=== PATIENT | female | born 1970 | race American Indian/Alaskan Native ===

== ENCOUNTER 2017-03-09 14:00 | Inpatient (IN) | payer OTHER ==
[2017-03-09 15:30] LABS: Basophils % (Auto) 0.4 % (0.0-1.8); Eosinophils % (Auto) 0.5 % (0.0-4.3); Hematocrit 31.6 % (30.3-42.9); Hemoglobin 10.4 gm/dl (10.1-14.3); Mean Corpuscular HGB Conc 33 % (30-34); Mean Corpuscular Hemoglobin 34 pg (28-32); Mean Corpuscular Volume 103 fl (79-97); Platelet Count 304 K/mm3 (140-440); Red Blood Count 3.09 M/mm3 (3.65-5.03); Red Cell Distribution Width 16.5 % (13.2-15.2); White Blood Count 6.3 K/mm3 (4.5-11.0)
[2017-03-09 16:11] LABS: Anion Gap 19 mmol/L; BUN/Creatinine Ratio 15.71; Blood Urea Nitrogen 11 mg/dL (7-17); Calcium 9.8 mg/dL (8.4-10.2); Carbon Dioxide 28 mmol/L (22-30); Chloride 102.7 mmol/L (98-107); Glucose 95 mg/dL (65-100); Potassium 4.2 mmol/L (3.6-5.0); Sodium 145 mmol/L (137-145)
--- NOTE | 2017-03-09 16:36 | ED Elopement Review ---
ED Pt Elopement review - Results review Lab results: Laboratory Tests 03/09/17 03/09/17 15:10 15:10 WBC 6.3 RBC 3.09 L Hgb 10.4 Hct 31.6 MCV 103 H MCH 34 H MCHC 33 RDW 16.5 H Plt Count 304 Lymph % (Auto) 35.0 [place] % (Auto) 12.1 H Eos % (Auto) 0.5 Baso % (Auto) 0.4 Lymph # 2.2 [place] # 0.8 Eos # 0.0 Baso # 0.0 Seg Neutrophils % 52.0 Seg Neutrophils # 3.3 Sodium 145 Potassium 4.2 Chloride 102.7 Carbon Dioxide 28 Anion Gap 19 BUN 11 Creatinine 0.7 Estimated GFR > 60 BUN/Creatinine Ratio 15.71 Glucose 95 Calcium 9.8 - Call Back decision Pt Call Back Decision: Call pt to return to ED [place] (when I went to see this patient, she had eloped from the emergency department. Her triage records discussed detox from substance abuse and possible suicidal ideations. The police will be contacted)
[2017-03-09] MEDS ORDERED: ATIVAN IV PRN ×2 (16:50)
--- NOTE | 2017-03-09 16:53 | Emergency Department Report ---
HPI - General Chief Complaint: Psych Time Seen by Provider: 03/09/17 16:09 - HPI HPI: This is a 46-year-old Afro-Stateless female presents to the emergency department , through triage, with complaint of alcoholism and suicidal ideations. The patient has history of hepatitis C, for which she has had for the past 30 years , and this is causing her to feel depressed. She says that "I am going to anyways", because of the hepatitis and her alcoholism, so she feels that suicide is not an inappropriate route to go. She does not have any specific plan at this time. She does have a history of seizures for which she is supposed to take Dilantin but says that she cannot afford the medication. She also does not have a primary care doctor she says she cannot afford it. Patient currently complains of some detox symptoms and feels very jittery and shaky. ED Past Medical Hx - Past Medical History Previous Medical History?: Yes Hx Seizures: Yes Additional medical history: Hep C - Surgical History Past Surgical History?: No - Social History Smoking Status: Never Smoker Substance Use Type: Alcohol ED Review of Systems ROS: Stated complaint: EVALUATION Other details as noted in HPI Comment: All other systems reviewed and negative Constitutional: denies: chills, fever Eyes: denies: eye pain, eye discharge, vision change ENT: denies: ear pain, throat pain Respiratory: denies: cough, shortness of breath, wheezing Cardiovascular: denies: chest pain, palpitations Gastrointestinal: denies: abdominal pain, nausea, diarrhea Genitourinary: denies: urgency, dysuria, discharge Musculoskeletal: denies: back pain, joint swelling, arthralgia Skin: denies: rash, lesions Neurological: denies: headache, confusion Psychiatric: depression, suicidal thoughts. denies: auditory hallucinations, visual hallucinations, homicidal thoughts Physical Exam - Physical Exam Vital Signs: Vital Signs 03/09/17 15:27 Temperature 98.1 F Pulse Rate 90 Respiratory 16 Rate Blood Pressure 148/87 [Left] O2 Sat by Pulse 97 Oximetry Physical Exam: GENERAL: The patient is well-developed well-nourished. HEENT: Normocephalic. Atraumatic. Extraocular motions are intact. Patient has moist mucous membranes. Pupils equal reactive to light bilaterally. Fatigable horizontal nystagmus. NECK: Supple. Trach is midline. CHEST/LUNGS: Clear to auscultation. There is no respiratory distress noted. HEART/CARDIOVASCULAR: Regular. There is no tachycardia. There is no gallop rub or murmur. ABDOMEN: Abdomen is soft, nontender. Patient has normal bowel sounds. There is no abdominal distention. SKIN: Skin is warm and dry. NEURO: The patient is awake, alert, and oriented. The patient is cooperative. The patient has no focal neurologic deficits. The patient has normal speech and gait. Patient has a slight upper extremity tremor. MUSCULOSKELETAL: There is no tenderness or deformity. There is no limitation range of motion. There is no evidence of acute injury. Muscle strength 5 out of 5 upper and lower extremities bilaterally. PSYCH: Flat affect. ED Course Vital Signs 03/09/17 15:27 Temperature 98.1 F Pulse Rate 90 Respiratory 16 Rate Blood Pressure 148/87 [Left] O2 Sat by Pulse 97 Oximetry ED Medical Decision Making - Lab Data Result diagrams: 03/09/17 15:10 03/09/17 15:10 - Medical Decision Making 46-year-old female presents with suicidal ideations and alcoholism. She last drink today but blood alcohol levels negative. She has a history of delirium tremens and seizures. While the patient does not appear to be currently in DTs she does have some mild tremors and appears to be starting withdrawal. Started on CIWA protocol. Urine drug screen positive for benzodiazepine's, otherwise labs are unremarkable. Vital signs stable throughout her ED course. However the patient will be admitted medically first to make sure that she does not develop any significant withdrawal syndrome and therefore can be cleared for psychiatric placement. She has been made a 1013 secondary to her suicidal ideations. - Differential Diagnosis alcoholism, bipolar disorder, depression, delirium tremens Critical Care Time: No Critical care attestation.: If time is entered above; I have spent that time in minutes in the direct care of this critically ill patient, excluding procedure time. ED Disposition Clinical Impression: Alcoholism, Suicidal ideation Alcohol withdrawal Qualifiers: Complication of substance-induced condition: with unspecified complication Qualified Code(s): F10.239 - Alcohol dependence with withdrawal, unspecified Disposition: OP ADMITTED IP TO THIS HOSP Is pt being admited?: Yes Condition: Stable Time of Disposition: 19:49
[2017-03-09] MEDS ORDERED: VITAMIN B-1 100 MG, FOLVITE 1 MG, INFUVITE 10 ML in NACL 0.9% 1000 ML 1,000 ML IV ONE (17:38)
[2017-03-09 19:27] LABS: Urine Drugs of Abuse Note Disclamer
[2017-03-09 19:43] LABS: Bilirubin,Urine NEG (Negative); Blood,Urine NEG (Negative); Ketones,Urine TR mg/dL (Negative); Leukocyte Esterase,Urine NEG (Negative); Nitrite,Urine NEG (Negative); Protein,Urine <15 mg/dL mg/dL (Negative); Urobilinogen,Urine < 2.0 mg/dL (<2.0)
--- NOTE | 2017-03-09 21:46 | Event Note ---
Date: 03/09/17 See H/p in reports ETOH dependence Suicidal ideation Seizure disorder Gastritis DVT prophylaxis
[2017-03-09] MEDS: HEPARIN SUB-Q SCH (22:31)
[2017-03-09] MEDS: 1: FOLVITE 1 MG, INFUVITE 10 ML, VITAMIN B-1 100 MG in NACL 0.9% 1000 ML 988.8 ML 2: NA IV SCH ×3 (23:10→23:13)
[2017-03-10] MEDS: HEPARIN SUB-Q SCH ×3 (05:24→22:11)
[2017-03-10] MEDS: 1: FOLVITE 1 MG, INFUVITE 10 ML, VITAMIN B-1 100 MG in NACL 0.9% 1000 ML 988.8 ML 2: NA IV SCH (05:56)
--- NOTE | 2017-03-10 06:47 | Admit Criteria Form ---
Admission Criteria Documentation: ALCOHOL AND PSYCHOACTIVE SUBSTANCE WITHDRAWAL Clinical Indications for Inpatient Care (Place ' X' for any and all applicable criteria): Ongoing inpatient care may be indicated for substance withdrawal[B][C] with ANY ONE of the following(1)(2)(3)(4)(21): [ ]I. Delirium due to alcohol or sedative[D] withdrawal is present. [ ]II. Marked signs of withdrawal are present as indicated by ANY ONE of the following(15)(22)(23) [ ]a) Heart rate greater than 120 beats per minute is present. [ ]b) Severe vomiting is present (eg, precludes maintenance of oral hydration). [ ]c) Grossly visible tremor is present. [ ]d) Profuse perspiration is present. [ ]e) Temperature greater than 101 degrees F (38.3 degrees C) is present. [ ]f) Other signs of severe withdrawal are present (eg, Altered mental status ) [ ]g) Severe withdrawal identified by standardized assessment score[A] [ ]III. Signs of withdrawal that require continued inpatient treatment as indicated by ANY ONE of the following(15)(22)(23): [ ]a) Inadequate response to pharmacotherapy (eg, benzodiazepines) [ ]b) Outpatient or lower level of care is not feasible or appropriate (eg, unavailable or inappropriate to patient condition or treatment history). [X ]IV. Withdrawal signs with high-risk indicator are present as manifested by ALL of the following[A](15)(22)(23) [ X]a) Signs of withdrawal are present as indicated by ANY ONE of the following: [ ]i. Tachycardia is present. [ ]ii. Nausea or vomiting is present. [X ]iii. Tremor is present. [ ]iv. Increased perspiration is present. [ ]v. Other signs of withdrawal are present. [ ]vi. Withdrawal identified by standardized assessment score [A] [X ]b) Elevated risk due to historical or comorbid factor is present as indicated by ANY ONE of the following: [X ]i. History of delirium due to withdrawal is present. [ ]ii. History of seizures due to withdrawal is present.[E] [ ]iii. Intrinsic seizure disorder (epilepsy) is present. [ ]iv. Patient is . [ ]v. Other significant medical history (eg, severe cardiac disease) is present, which is assessed to be at risk for destabilization due to withdrawal. [ ]V. Serious electrolyte abnormalities (eg, hyponatremia, hypokalemia, hypophosphatemia) requiring correction performable only in inpatient setting(6)(25) [ ]. Severe hypoglycemia requiring glucose infusions performable only in inpatient setting(6) [ ]VII. Drug toxicity or instability, such as Altered mental status, respiratory depression, or arrhythmias, that requires inpatient care [X ]VIII. Danger judged unmanageable at lower level of care because of ANY ONE of the following [ X]a) Danger to self [ ]b) Danger to others [ ]c) Grave disability (eg, inability to perform self-care necessary at lower level of care) The original [facility] Care Guidelines content created by [facility] has been revised. The portions of the content which have been revised are identified through the use of italic text or in bold. [facility] Guidelines has neither reviewed nor approved the modified material. All other unmodified content is copyright [facility] Care Guidelines. Please see references footnoted in the original [facility] edition 2016 Admission Criteria Met: Yes
[2017-03-10] MEDS ORDERED: LOPRESSOR IV ONE (09:20)
[2017-03-10] MEDS ORDERED: APRESOLINE IV PRN (09:20)
[2017-03-10] MEDS ORDERED: APRESOLINE IV ONE (09:31)
[2017-03-10] MEDS: KEPPRA PO SCH ×2 (09:43→22:11)
--- NOTE | 2017-03-10 09:49 | Discharge Summary ---
Providers - Providers Date of Admission: 03/09/17 19:50 Date of discharge: 03/10/17 Attending physician: NIKO LEWIS MD 03/09/17 21:50 Consult to Physician [CONS] Routine Consulting Provider: LISA HAMMOND Reason For Exam: ETOH dependence Place consult to:: MELISSA Notified:: MELISSA Phone number called:: [phone] Was contact made?: Yes If yes, spoke with:: MELISSA Time called:: 07:08 03/10/17 09:03 Consult to Mental Health [CONS] Routine Reason For Exam: Etoh dependence/Suicidal ideation Place consult to:: yes Notified:: MELISSA Phone number called:: [phone] Was contact made?: Yes If yes, spoke with:: MELISSA Time called:: 07:08 Primary care physician: HOPPER FEEDER Hospitalization Reason for admission: Suicidal Ideation, ETOH depenece withdrawal seizure. Condition: Stable Hospital course: Patient is a 46 year old female with hx of seizure disorder, last epsiode as a child per the patient, history of alcohol dependence and hepatitis C who presented to the hospital following withdrawal seizure. The patient also reported suicidal ideation. He was placed on a 1013. Patient during hospitalization reported chest pain which was reproducible. No associated exertional components and shortness of breath. She is clinical before discharge and also recommended outpatient follow-up with cardiology just based on her age and alcohol abuse. Also an echocardiogram which can be done outpatient. Also advised that no exertional activity until she sees cardiology. Verbalized understanding. No indication for AED at this time as patient did have a withdrawal seizure. Extensive counseling was provided on alcohol cessation and following up at rehabilitation facility. Patient also has history of hypertension for which I started her on a blood pressure medication with hydrochlorothiazide and extensive counseling will also provide informed medication compliance Discharge diagnosis * Alcohol withdrawal seizure * Alcohol dependence * Suicidal ideation * Hepatitis C * Hypertension * Cachexia with mild protein calorie malnutrition Disposition: DC/TX PSY HOSP/PSY UNIT Time spent for discharge: 35 mins Core Measure Documentation - Palliative Care Palliative Care/ Comfort Measures: Not Applicable - Core Measures Any of the following diagnoses?: none - VTE Discharge Requirements Deep Vein Thrombosis/Pulmonary Embolism Present on Admission: No Exam - Physical Exam Narrative exam: VITAL SIGNS: Reviewed. GENERAL: The patient appeared well nourished and normally developed. Vital signs as documented. HEAD: No signs of head trauma. EYES: Pupils are equal. Extraocular motions intact. EARS: Hearing grossly intact. MOUTH: Oropharynx is normal. NECK: No adenopathy, no JVD. CHEST: Chest with clear breath sounds bilaterally. No wheezes, rales, or rhonchi. CARDIAC: Regular rate and rhythm. S1 and S2, without murmurs, gallops, or rubs. VASCULAR: No Edema. Peripheral pulses normal and equal in all extremities. ABDOMEN: Soft, without detectable tenderness. No sign of distention. No rebound or guarding, and no masses palpated. Bowel Sounds normal. MUSCULOSKELETAL: Chest wall tenderness on palpation, otherwise good range of motion of all major joints. Extremities without clubbing, cyanosis or edema. NEUROLOGIC EXAM: Alert and oriented x 3. No focal sensory or strength deficits. Speech normal. Follows commands. PSYCHIATRIC: Mood normal. SKIN: No rash or lesions. - Constitutional Vitals: Temp Pulse Resp BP Pulse Ox 98.2 F 80 20 178/118 96 03/10/17 08:19 03/10/17 09:44 03/10/17 08:19 03/10/17 09:44 03/10/17 08:19 Plan Activity: advance as tolerated, fall precautions Diet: low fat Special Instructions: record daily BP diary Follow up with: LUIS A HAMMOND MD [Staff Physician] - 7 Days PRIMARY CAREMD [Primary Care Provider] - 3-5 Days JACOB CORONADO MD [Staff Physician] - 7 Days Prescriptions: Phenytoin [Dilantin] 300 mg PO QHS #30 capsule.er amLODIPine [Norvasc] 10 mg PO DAILY #30 tab chlordiazePOXIDE [Librium] 5 mg PO Q12H PRN #14 capsule PRN Reason: Anxiety Folic Acid 0.4 mg PO QDAY #30 tablet Multivitamin Tab [Multiple Vitamin TAB (Theragran)] 1 each PO QDAY #30 tablet Thiamine [Vitamin B-1] 100 mg PO QDAY #30 tablet
--- NOTE | 2017-03-10 10:10 | History and Physical Report ---
CHIEF COMPLAINT: 1. ETOH dependence. 2. Suicidal ideation. HISTORY OF PRESENT ILLNESS: A 46-year-old -Finnish female who presents to the Emergency Department for suicidal ideation and ETOH dependence. The patient states \\"I am going to anyway\\" because of hepatitis and alcoholism. Feel suicidal but does not have any specific plan. The patient also has a history of seizures, but not taking seizure tab Dilantin which is prescribed as anti-seizure medication. ALLERGIES: The patient is basically noncompliant, not taking her medications and ETOH dependent with seizures also suicidal ideations. PAST MEDICAL HISTORY: Hepatitis C, seizures, and ETOH dependence. SOCIAL HISTORY: ETOH dependence. PAST SURGICAL HISTORY: None. FAMILY HISTORY: No hypertension, no diabetes. REVIEW OF SYSTEMS: CONSTITUTIONAL: No weight loss, no weight gain. No fever, no chills. HEENT: No sore throat, no postnasal drip. CARDIOVASCULAR AND RESPIRATORY SYSTEM: No shortness of breath, no chest pain, no palpitations. GASTROINTESTINAL: Some epigastric discomfort present. GENITOURINARY: No dysuria, no flank pain. MUSCULOSKELETAL: No joint pains. No muscle pains. CENTRAL NERVOUS SYSTEM: No syncope. No recent seizures. SKIN: No rashes. PSYCHIATRIC: Suicidal ideation present. ____ concrete plan. A 14-point review of systems is otherwise negative. PHYSICAL EXAMINATION: GENERAL: Middle-aged female who looks older than her age. VITAL SIGNS: Temperature 98.1, pulse is 90, respiratory rate is 16, blood pressure is 148/87, and sats are 97%. HEENT: Unremarkable. Pupils equal and reactive. NECK: Supple, no lymphadenopathy, no thyromegaly. LUNGS: Clear to auscultation and percussion. Good air entry. CARDIOVASCULAR: S1, S2 heard. No gallop, no murmur, no rub. Apical impulse in left fifth intercostal space and midclavicular line. ABDOMEN: Soft and benign. No hepatosplenomegaly. No guarding, no rigidity. Hernial orifices are normal. EXTREMITIES: Good pedal pulses. No pedal edema. CENTRAL NERVOUS SYSTEM: Alert and oriented x 4, nonfocal exam. SKIN: Normal. LABORATORY DATA: Labs are significant for white count of 6300. H and H is 10.4 and 31.6, platelet count is 304,000. Electrolytes are normal. Potassium is 4.2. Sodium is 145, BUN and creatinine 11 and 0.7. Urine is negative. Drug screen is positive for benzos. Alcohol level is less than 0.01. ASSESSMENT AND PLAN: 1. ETOH dependence. The patient started on CIWA protocol. The patient has history of delirium tremens. The patient was started on banana bag and Ativan as part of the CIWA protocol. 2. Suicidal ideation. Mental health consult requested. 3. Seizure disorder by history. The patient on Dilantin. She was started on Keppra 750 p.o. q.12h. We will discharge the patient on Keppra more safer drug than Dilantin. 4. Hepatitis C. CMP ordered. The patient can follow up with primary care for hepatitis C. The primary care can refer to GI for treatment of hepatitis C. 5. DVT prophylaxis, Lovenox 40 mg subcutaneous daily. JOB# [id number] VSM/NTS
[2017-03-10] MEDS ORDERED: NACL 0.9% 1000 ML 1,000 ML IV SCH (11:00)
[2017-03-10] MEDS ORDERED: FLUARIX QUAD 2016-2017(36 MOS+) IM ONE (12:00)
[2017-03-10] MEDS ORDERED: PNEUMOVAX 23 IM ONE (12:00)
[2017-03-10 13:38] LABS: Basophils % (Auto) 0.6 % (0.0-1.8); Eosinophils % (Auto) 0.7 % (0.0-4.3); Hemoglobin 10.5 gm/dl (10.1-14.3); Mean Corpuscular HGB Conc 34 % (30-34); Mean Corpuscular Hemoglobin 34 pg (28-32); Mean Corpuscular Volume 101 fl (79-97); Platelet Count 285 K/mm3 (140-440); Red Blood Count 3.06 M/mm3 (3.65-5.03); Red Cell Distribution Width 16.5 % (13.2-15.2)
[2017-03-10 13:55] LABS: Alanine Aminotransferase 50 units/L (7-56); Albumin 3.6 g/dL (3.9-5); Alkaline Phosphatase 83 units/L (35-129); Anion Gap 18 mmol/L; BUN/Creatinine Ratio 8.33; Blood Urea Nitrogen 5 mg/dL (7-17); Calcium 8.8 mg/dL (8.4-10.2); Carbon Dioxide 26 mmol/L (22-30); Chloride 103.5 mmol/L (98-107); Glucose 101 mg/dL (65-100); Potassium 3.5 mmol/L (3.6-5.0); Sodium 144 mmol/L (137-145); Total Protein 7.1 g/dL (6.3-8.2)
--- NOTE | 2017-03-10 15:01 | Consultation ---
History of Present Illness - Reason for Consult Consult date: 03/10/17 Reason for consult: Mental Health Evaluation Requesting physician: PETRA MIRELES - Chief Complaint Chief complaint: "I want help" - History of Present Psychiatric Illness This is a 46-year-old Afro-Portuguese female presents to the emergency department , through triage, with complaint of alcoholism and suicidal ideations. Today patient is calm and cooperative during assessment. She stated that she would like help for her alcohol addiction. She stated that didn't elope on admission. She stated she went to another restroom in the hospital and left the ER area. She apologized to me for causing a "problem." She stated that she was suicidal on admission, because she felt she was "drinking" her life away. She is aware that she has hepatitis and stated, "Having hepatitis and drinking does not mix well." She is adamant about getting help and would like to attend a long-term outpatient rehab services for alcohol abuse. She stated that she been drinking over 20 years and drink a pint of "liquor" a day. Her last drink was 03/08/2017. She denies SI/HI, AVH's, sleep disturbance, or a poor appetite. She has not needed Ativan per CIWA protocol. She denies recreational drug. Positive for benzos. Medications and Allergies Allergies Allergy/AdvReac Type Severity Reaction Status Date / Time Penicillins Allergy Unknown Verified 03/09/17 14:38 Home Medications Medication Instructions Recorded Confirmed Last Taken Type Folic Acid 0.4 mg PO QDAY #30 tablet 03/10/17 Unknown Rx Hydrochlorothiazide [HCTZ] 25 mg PO QDAY #30 tablet 03/10/17 Unknown Rx Multivitamin Tab [Multiple Vitamin 1 each PO QDAY #30 tablet 03/10/17 Unknown Rx TAB (Theragran)] Thiamine [Vitamin B-1] 100 mg PO QDAY #30 tablet 03/10/17 Unknown Rx Active Meds: Active Medications Folic Acid (Folvite) 1 mg PO DAILY [facility] Heparin Sodium (Porcine) (Heparin) 5,000 unit SUB-Q Q8HR [facility]S Last Admin: 03/10/17 05:24 Dose: 5,000 unit Hydralazine HCl (Apresoline) 10 mg IV Q4HR PRN PRN Reason: Hypertension Sodium Chloride (Nacl 0.9% 1000 Ml) 1,000 mls @ 125 mls/hr IV DIRECT [facility] Levetiracetam (Keppra) 750 mg PO BID [facility] Last Admin: 03/10/17 09:43 Dose: 750 mg Lorazepam (Ativan) 2 mg IV Q1HR PRN PRN Reason: CIWA-Ar 8-15 Lorazepam (Ativan) 4 mg IV Q1HR PRN PRN Reason: CIWA-Ar 16-25 Lorazepam (Ativan) 4 mg IV Q15MIN PRN PRN Reason: CIWA-Ar >25 Multivitamins (Theragran Tab) 1 each PO DAILY [facility] Thiamine HCl (Vitamin B-1) 100 mg PO QDAY [facility] Past psychiatric history - Past Medical History Past Medical History: hepatitis Past Surgical History: No surgical history - past Psychiatric treatment and history psychiatric treatment history: [facility] for substance abuse. Denies fam psy hx. - Social History Social history: lives with family, alcohol abuse Mental Status Exam - Vital signs Last Vital Signs Temp 98.2 F 03/10/17 08:19 Pulse 107 H 03/10/17 11:02 Resp 20 03/10/17 08:19 BP 125/80 03/10/17 11:02 Pulse Ox 96 03/10/17 08:19 Results Result Diagrams: 03/10/17 13:07 03/10/17 13:07 Abnormal lab results 03/10/17 03/10/17 Range/Units 13:07 13:07 RBC 3.06 L (3.65-5.03) M/mm3 MCV 101 H (79-97) fl MCH 34 H (28-32) pg RDW 16.5 H (13.2-15.2) % [place] % (Auto) 11.5 H (0.0-7.3) % Potassium 3.5 L (3.6-5.0) mmol/L BUN 5 L (7-17) mg/dL Creatinine 0.6 L (0.7-1.2) mg/dL Glucose 101 H (65-100) mg/dL AST 71 H (5-40) units/L Albumin 3.6 L (3.9-5) g/dL All other labs normal. Assessment and Plan Assessment and plan: Impression: Alcohol Use DO. This is a 46-year-old Afro-Portuguese female presents to the emergency department, through triage, with complaint of alcoholism and suicidal ideations. Today patient is calm and cooperative during assessment. She stated that she would like help for her alcohol addiction. She stated that didn't elope of admission. She stated she went to another restroom in the hospital and left the ER area. No acute withdrawals observed on assessment. DD: Depressive DO Recommendation/Plan: Continue 1013 and reevaluate in the morning. Will provide outpatient rehab services information to patient if discharged. Discussed generalized coping skills with patient, also the important to abstain from alcohol consumption.
[2017-03-10] MEDS ORDERED: MOTRIN PO PRN (15:29)
[2017-03-10] MEDS: VITAMIN B-1 PO SCH (15:38)
[2017-03-10] MEDS: FOLVITE PO SCH (15:38)
[2017-03-10] MEDS: THERAGRAN Tab PO SCH (15:39)
--- NOTE | 2017-03-10 16:47 | Progress Note ---
Assessment and Plan Assessment and plan: Patient is a 46-year-old female with past medical history of seizure as a child and since then, Alcohol abuse admitted with suicidal ideation and EtOH withdrawal seizure. * Atypical chest pain likely secondary to costochondritis * Suicidal ideation * Alcohol withdrawal seizure * Alcohol dependence * Hepatitis C Plan: * Patient is medically stable for discharge to inpatient psych. * Chest pain totally reproducible troponins ordered likely costochondritis * No indication for a ED at this time considering withdrawal nature of the seizure * I discussed with the patient over the need of total abstain from alcohol, she verbalizes understanding * DVT/GI prophy * Plan discussed with nursing staff and patient. History Interval history: Patient seen and examined this morning in no acute distress This morning complaining of reproducible chest pain but otherwise no, nausea, vomiting, diarrhea No fever noted blood pressure controlled No adverse events reported to me by nursing staff Hospitalist Physical - Physical exam Narrative exam: VITAL SIGNS: Reviewed. GENERAL: The patient appeared well nourished and normally developed. Vital signs as documented. HEAD: No signs of head trauma. EYES: Pupils are equal. Extraocular motions intact. EARS: Hearing grossly intact. MOUTH: Oropharynx is normal. NECK: No adenopathy, no JVD. CHEST: Chest with clear breath sounds bilaterally. No wheezes, rales, or rhonchi. CARDIAC: Regular rate and rhythm. S1 and S2, without murmurs, gallops, or rubs. VASCULAR: No Edema. Peripheral pulses normal and equal in all extremities. ABDOMEN: Soft, without detectable tenderness. No sign of distention. No rebound or guarding, and no masses palpated. Bowel Sounds normal. MUSCULOSKELETAL: Chest wall tenderness on palpation, otherwise good range of motion of all major joints. Extremities without clubbing, cyanosis or edema. NEUROLOGIC EXAM: Alert and oriented x 3. No focal sensory or strength deficits. Speech normal. Follows commands. PSYCHIATRIC: Mood normal. SKIN: No rash or lesions. - Constitutional Vitals: Temp Pulse Resp BP Pulse Ox 98.2 F 107 H 20 125/80 96 03/10/17 08:19 03/10/17 11:02 03/10/17 08:19 03/10/17 11:02 03/10/17 08:19 Results - Labs CBC & Chem 7: 03/10/17 13:07 03/10/17 13:07 Labs: Laboratory Last Values WBC 5.0 K/mm3 (4.5-11.0) 03/10/17 13:07 RBC 3.06 M/mm3 (3.65-5.03) L 03/10/17 13:07 Hgb 10.5 gm/dl (10.1-14.3) 03/10/17 13:07 Hct 31.0 % (30.3-42.9) 03/10/17 13:07 MCV 101 fl (79-97) H 03/10/17 13:07 MCH 34 pg (28-32) H 03/10/17 13:07 MCHC 34 % (30-34) 03/10/17 13:07 RDW 16.5 % (13.2-15.2) H 03/10/17 13:07 Plt Count 285 K/mm3 (140-440) 03/10/17 13:07 Lymph % (Auto) 32.8 % (13.4-35.0) 03/10/17 13:07 [place] % (Auto) 11.5 % (0.0-7.3) H 03/10/17 13:07 Eos % (Auto) 0.7 % (0.0-4.3) 03/10/17 13:07 Baso % (Auto) 0.6 % (0.0-1.8) 03/10/17 13:07 Lymph # 1.7 K/mm3 (1.2-5.4) 03/10/17 13:07 [place] # 0.6 K/mm3 (0.0-0.8) 03/10/17 13:07 Eos # 0.0 K/mm3 (0.0-0.4) 03/10/17 13:07 Baso # 0.0 K/mm3 (0.0-0.1) 03/10/17 13:07 Seg Neutrophils % 54.4 % (40.0-70.0) 03/10/17 13:07 Seg Neutrophils # 2.7 K/mm3 (1.8-7.7) 03/10/17 13:07 Sodium 144 mmol/L (137-145) 03/10/17 13:07 Potassium 3.5 mmol/L (3.6-5.0) L 03/10/17 13:07 Chloride 103.5 mmol/L (98-107) 03/10/17 13:07 Carbon Dioxide 26 mmol/L (22-30) 03/10/17 13:07 Anion Gap 18 mmol/L 03/10/17 13:07 BUN 5 mg/dL (7-17) L 03/10/17 13:07 Creatinine 0.6 mg/dL (0.7-1.2) L 03/10/17 13:07 Estimated GFR > 60 ml/min 03/10/17 13:07 BUN/Creatinine Ratio 8.33 % 03/10/17 13:07 Glucose 101 mg/dL (65-100) H 03/10/17 13:07 Calcium 8.8 mg/dL (8.4-10.2) 03/10/17 13:07 Total Bilirubin 0.20 mg/dL (0.1-1.2) 03/10/17 13:07 AST 71 units/L (5-40) H 03/10/17 13:07 ALT 50 units/L (7-56) 03/10/17 13:07 Alkaline Phosphatase 83 units/L (35-129) 03/10/17 13:07 Total Protein 7.1 g/dL (6.3-8.2) 03/10/17 13:07 Albumin 3.6 g/dL (3.9-5) L 03/10/17 13:07 Albumin/Globulin Ratio 1.0 % 03/10/17 13:07 Urine Color Yellow (Yellow) 03/09/17 19:25 Urine Turbidity Clear (Clear) 03/09/17 19:25 Urine pH 6.0 (5.0-7.0) 03/09/17 19:25 Ur Specific [place] 1.009 (1.003-1.030) 03/09/17 19:25 Urine Protein <15 mg/dl mg/dL (Negative) 03/09/17 19:25 Urine Glucose (UA) Neg mg/dL (Negative) 03/09/17 19:25 Urine Ketones Tr mg/dL (Negative) 03/09/17 19:25 Urine Blood Neg (Negative) 03/09/17 19:25 Urine Nitrite Neg (Negative) 03/09/17 19:25 Ur Reducing Substances Not Reportable 03/09/17 19:25 Urine Bilirubin Neg (Negative) 03/09/17 19:25 Urine Ictotest Not Reportable 03/09/17 19:25 Urine Urobilinogen < 2.0 mg/dL (<2.0) 03/09/17 19:25 Ur Leukocyte Esterase Neg (Negative) 03/09/17 19:25 Urine WBC (Auto) 1.0 /HPF (0.0-6.0) 03/09/17 19:25 Urine RBC (Auto) 1.0 /HPF (0.0-6.0) 03/09/17 19:25 U Epithel Cells (Auto) 1.0 /HPF (0-13.0) 03/09/17 19:25 Urine HCG, Qual Negative (Negative) 03/09/17 19:25 Urine Opiates Screen Presumptive negative 03/09/17 19:25 Urine Methadone Screen Presumptive negative 03/09/17 19:25 Ur Barbiturates Screen Presumptive negative 03/09/17 19:25 Ur Phencyclidine Scrn Presumptive negative 03/09/17 19:25 Ur Amphetamines Screen Presumptive negative 03/09/17 19:25 U Benzodiazepines Scrn Presumptive positive 03/09/17 19:25 Urine Cocaine Screen Presumptive negative 03/09/17 19:25 U Marijuana (THC) Screen Presumptive negative 03/09/17 19:25 Drugs of Abuse Note Disclamer 03/09/17 19:25 Plasma/Serum Alcohol < 0.01 gm% (0-0.07) 03/09/17 15:10 - Imaging and Cardiology EKG: report reviewed
--- NOTE | 2017-03-10 18:00 | Event Note ---
Date: 03/10/17 ROS (-) depression MSE: Appearance: calm, cooperative Behavior: good eye contact, disorganized Speech: regular rate and tone Mood: "okay" Affect: euthymic Thought Process: linear Thought Content: denies SI/HI's and VH's Motor Activity: ambulatory Cognition: a/ox 3 Insight: fair Judgment: fair
[2017-03-11] MEDS: HEPARIN SUB-Q SCH ×3 (06:00→22:40)
[2017-03-11] MEDS: FOLVITE PO SCH (11:53)
[2017-03-11] MEDS: KEPPRA PO SCH ×2 (11:53→22:39)
[2017-03-11] MEDS: THERAGRAN Tab PO SCH (11:54)
[2017-03-11] MEDS: VITAMIN B-1 PO SCH (11:54)
[2017-03-11] MEDS ORDERED: K-DUR PO ONE (17:24)
--- NOTE | 2017-03-11 17:24 | Progress Note ---
Assessment and Plan Assessment and plan: Patient is a 46-year-old female with past medical history of seizure as a child and since then, Alcohol abuse admitted with suicidal ideation and EtOH withdrawal seizure. * Atypical chest pain likely secondary to costochondritis * Suicidal ideation * Hypokalemia * Alcohol withdrawal seizure * Alcohol dependence * Hepatitis C Plan: * Patient is medically stable for discharge to inpatient psych. * Replace K * no further chest pain * No indication for a ED at this time considering withdrawal nature of the seizure * I discussed with the patient over the need of total abstain from alcohol, she verbalizes understanding * DVT/GI prophy * Plan discussed with nursing staff and patient. History Interval history: Patient seen and examined this morning in no acute distress no chest pain today but otherwise no, nausea, vomiting, diarrhea No fever noted blood pressure controlled No adverse events reported to me by nursing staff Hospitalist Physical - Physical exam Narrative exam: VITAL SIGNS: Reviewed. GENERAL: The patient appeared well nourished and normally developed. Vital signs as documented. HEAD: No signs of head trauma. EYES: Pupils are equal. Extraocular motions intact. EARS: Hearing grossly intact. MOUTH: Oropharynx is normal. NECK: No adenopathy, no JVD. CHEST: Chest with clear breath sounds bilaterally. No wheezes, rales, or rhonchi. CARDIAC: Regular rate and rhythm. S1 and S2, without murmurs, gallops, or rubs. VASCULAR: No Edema. Peripheral pulses normal and equal in all extremities. ABDOMEN: Soft, without detectable tenderness. No sign of distention. No rebound or guarding, and no masses palpated. Bowel Sounds normal. MUSCULOSKELETAL: Chest wall tenderness on palpation, otherwise good range of motion of all major joints. Extremities without clubbing, cyanosis or edema. NEUROLOGIC EXAM: Alert and oriented x 3. No focal sensory or strength deficits. Speech normal. Follows commands. PSYCHIATRIC: Mood normal. SKIN: No rash or lesions. - Constitutional Vitals: Temp Pulse Resp BP Pulse Ox 98.7 F 82 18 184/109 97 03/11/17 17:00 03/11/17 17:00 03/11/17 17:00 03/11/17 17:00 03/11/17 17:00 Results - Labs CBC & Chem 7: 03/10/17 13:07 03/10/17 13:07 Labs: Laboratory Last Values WBC 5.0 K/mm3 (4.5-11.0) 03/10/17 13:07 RBC 3.06 M/mm3 (3.65-5.03) L 03/10/17 13:07 Hgb 10.5 gm/dl (10.1-14.3) 03/10/17 13:07 Hct 31.0 % (30.3-42.9) 03/10/17 13:07 MCV 101 fl (79-97) H 03/10/17 13:07 MCH 34 pg (28-32) H 03/10/17 13:07 MCHC 34 % (30-34) 03/10/17 13:07 RDW 16.5 % (13.2-15.2) H 03/10/17 13:07 Plt Count 285 K/mm3 (140-440) 03/10/17 13:07 Lymph % (Auto) 32.8 % (13.4-35.0) 03/10/17 13:07 [place] % (Auto) 11.5 % (0.0-7.3) H 03/10/17 13:07 Eos % (Auto) 0.7 % (0.0-4.3) 03/10/17 13:07 Baso % (Auto) 0.6 % (0.0-1.8) 03/10/17 13:07 Lymph # 1.7 K/mm3 (1.2-5.4) 03/10/17 13:07 [place] # 0.6 K/mm3 (0.0-0.8) 03/10/17 13:07 Eos # 0.0 K/mm3 (0.0-0.4) 03/10/17 13:07 Baso # 0.0 K/mm3 (0.0-0.1) 03/10/17 13:07 Seg Neutrophils % 54.4 % (40.0-70.0) 03/10/17 13:07 Seg Neutrophils # 2.7 K/mm3 (1.8-7.7) 03/10/17 13:07 Sodium 144 mmol/L (137-145) 03/10/17 13:07 Potassium 3.5 mmol/L (3.6-5.0) L 03/10/17 13:07 Chloride 103.5 mmol/L (98-107) 03/10/17 13:07 Carbon Dioxide 26 mmol/L (22-30) 03/10/17 13:07 Anion Gap 18 mmol/L 03/10/17 13:07 BUN 5 mg/dL (7-17) L 03/10/17 13:07 Creatinine 0.6 mg/dL (0.7-1.2) L 03/10/17 13:07 Estimated GFR > 60 ml/min 03/10/17 13:07 BUN/Creatinine Ratio 8.33 % 03/10/17 13:07 Glucose 101 mg/dL (65-100) H 03/10/17 13:07 Calcium 8.8 mg/dL (8.4-10.2) 03/10/17 13:07 Total Bilirubin 0.20 mg/dL (0.1-1.2) 03/10/17 13:07 AST 71 units/L (5-40) H 03/10/17 13:07 ALT 50 units/L (7-56) 03/10/17 13:07 Alkaline Phosphatase 83 units/L (35-129) 03/10/17 13:07 Troponin T < 0.010 ng/mL (0.00-0.029) 03/11/17 13:37 Total Protein 7.1 g/dL (6.3-8.2) 03/10/17 13:07 Albumin 3.6 g/dL (3.9-5) L 03/10/17 13:07 Albumin/Globulin Ratio 1.0 % 03/10/17 13:07 Urine Color Yellow (Yellow) 03/09/17 19:25 Urine Turbidity Clear (Clear) 03/09/17 19:25 Urine pH 6.0 (5.0-7.0) 03/09/17 19:25 Ur Specific [place] 1.009 (1.003-1.030) 03/09/17 19:25 Urine Protein <15 mg/dl mg/dL (Negative) 03/09/17 19:25 Urine Glucose (UA) Neg mg/dL (Negative) 03/09/17 19:25 Urine Ketones Tr mg/dL (Negative) 03/09/17 19:25 Urine Blood Neg (Negative) 03/09/17 19:25 Urine Nitrite Neg (Negative) 03/09/17 19:25 Ur Reducing Substances Not Reportable 03/09/17 19:25 Urine Bilirubin Neg (Negative) 03/09/17 19:25 Urine Ictotest Not Reportable 03/09/17 19:25 Urine Urobilinogen < 2.0 mg/dL (<2.0) 03/09/17 19:25 Ur Leukocyte Esterase Neg (Negative) 03/09/17 19:25 Urine WBC (Auto) 1.0 /HPF (0.0-6.0) 03/09/17 19:25 Urine RBC (Auto) 1.0 /HPF (0.0-6.0) 03/09/17 19:25 U Epithel Cells (Auto) 1.0 /HPF (0-13.0) 03/09/17 19:25 Urine HCG, Qual Negative (Negative) 03/09/17 19:25 Urine Opiates Screen Presumptive negative 03/09/17 19:25 Urine Methadone Screen Presumptive negative 03/09/17 19:25 Ur Barbiturates Screen Presumptive negative 03/09/17 19:25 Ur Phencyclidine Scrn Presumptive negative 03/09/17 19:25 Ur Amphetamines Screen Presumptive negative 03/09/17 19:25 U Benzodiazepines Scrn Presumptive positive 03/09/17 19:25 Urine Cocaine Screen Presumptive negative 03/09/17 19:25 U Marijuana (THC) Screen Presumptive negative 03/09/17 19:25 Drugs of Abuse Note Disclamer 03/09/17 19:25 Plasma/Serum Alcohol < 0.01 gm% (0-0.07) 03/09/17 15:10
[2017-03-11] MEDS: ATIVAN IV PRN (22:39)
--- NOTE | 2017-03-12 00:21 | Progress Note ---
Subjective - Reason for Consult Consult date: 03/11/17 Reason for consult: psychiatric follow up - Chief Complaint Chief complaint: "I want help" Patient seen in the evening of 03/11/17 following her return from having an echocardiogram. She reports wanting [facility] treatment for alcohol. She denies withdrawal currently and reports she is no longer having tremors. She has ativan available if needed. She reports depression and denies SI. She reports hearing whispers and seeing "floaters." Mental Status Exam - Vital signs Last Vital Signs Temp 97.7 F 03/11/17 23:38 Pulse 81 03/11/17 23:38 Resp 18 03/11/17 23:38 BP 126/70 03/11/17 23:38 Pulse Ox 98 03/11/17 23:38 - Exam Orientation: time, place, person Affect: depressed Mood: congruent with affect Thought content: other (no SI, no HI) Thought Process: Intact (but slow) Perceptions: visual, auditory Speech: slow Concentration: focused Motor activity: normal Level of consciousness: alert Memory: Intact Sleep Symptoms: Difficulty Falling Asleep Appetite: decreased Interaction: cooperative Assessment and Plan Impression: Alcohol Use DO. This is a 46-year-old [place]ro[place] female presents to the emergency department, through triage, with complaint of alcoholism and suicidal ideations. Today patient is calm and cooperative during assessment. She stated that she would like help for her alcohol addiction. No acute withdrawals observed on assessment. DD: MDD with psychotic features Recommendation/Plan: Continue 1013 and plan for inpatient psychiatric treatment if it continues to be indicated when she is medically cleared. Will evaluate psychotic and mood symptoms at next evaluation to determine if SSRI or antipsychotic is necessary. Continue CIWA
[2017-03-12] MEDS: HEPARIN SUB-Q SCH ×3 (06:18→22:00)
[2017-03-12] MEDS: VITAMIN B-1 PO SCH (11:02)
[2017-03-12] MEDS: THERAGRAN Tab PO SCH (11:03)
[2017-03-12] MEDS: KEPPRA PO SCH ×2 (11:03→23:22)
[2017-03-12] MEDS: FOLVITE PO SCH (11:04)
--- NOTE | 2017-03-12 15:23 | Progress Note ---
Subjective - Reason for Consult Consult date: 03/12/17 Reason for consult: Psychiatry Follow-up - Chief Complaint Chief complaint: "I am a mess" This is a 46-year-old Afro[place] female presents to the emergency department , through triage, with complaint of alcoholism and suicidal ideations. Today patient is calm and cooperative during assessment. She stated that she did not sleep well last night and still hearing the "whisper sounds" in her ear intermittently. She stated that she can't get to sleep thinking about her daughter and grandson. She stated that the sleep disturbance have been an issue the past couple days. On previous assessment, patient denied any sleep disturbances. She stated that she is feuding with her daughter and that's why she (daughter) want answer the phone when called. She denies VH's and a poor appetite. Mental Status Exam - Vital signs Last Vital Signs Temp 97.8 F 03/12/17 06:15 Pulse 72 03/12/17 06:15 Resp 18 03/12/17 06:15 BP 135/88 03/12/17 06:15 Pulse Ox 95 03/12/17 06:15 - Exam Narrative exam: MSE: Appearance: calm, cooperative Behavior: good eye contact Speech: regular rate and tone Mood: "okay" Affect: flat Thought Process: circumstantial Thought Content: denies SI/HI's and VH's Motor Activity: ambulatory Cognition: a/ox 3 Insight: limited Judgment: limted Assessment and Plan Impression: This is a 46-year-old Afro[place] female presents to the emergency department, through triage, with complaint of alcoholism and suicidal ideations. Today patient is calm and cooperative during assessment. She stated that she did not sleep well last night and still hearing the "whisper sounds" in her ear intermittently. She stated that she can't get to sleep thinking about her daughter and grandson. No acute withdrawals noted on assessment. Patient is experiencing sleep deprivation. Patient is willing to participate in the [facility] once discharged. Recommendation/Plan: Continue 1013. Start Benadryl 25 mg PO HS for sleep. Will evaluate tomorrow to determine if a SSRI/Antipsychotic need to be added to her medication regimen. Discussed generalized coping skills with patient and how important it is to abstain from alcohol consumption.
--- NOTE | 2017-03-12 17:48 | Progress Note ---
Assessment and Plan Assessment and plan: Patient is a 46-year-old female with past medical history of seizure as a child and since then, Alcohol abuse admitted with suicidal ideation and EtOH withdrawal seizure. * Atypical chest pain likely secondary to costochondritis * Suicidal ideation * Hypokalemia-corrected * Alcohol withdrawal seizure * Alcohol dependence * Hepatitis C Plan: * Patient is medically stable for discharge to inpatient psych. * Replace K * no further chest pain * No indication for a ED at this time considering withdrawal nature of the seizure * I discussed with the patient over the need of total abstain from alcohol, she verbalizes understanding * DVT/GI prophy * Plan discussed with nursing staff and patient. History Interval history: Patient seen and examined this morning in no acute distress, states feeling better. no chest pain today but otherwise no, nausea, vomiting, diarrhea No fever noted blood pressure controlled No adverse events reported to me by nursing staff Hospitalist Physical - Physical exam Narrative exam: VITAL SIGNS: Reviewed. GENERAL: The patient appeared well nourished and normally developed. Vital signs as documented. HEAD: No signs of head trauma. EYES: Pupils are equal. Extraocular motions intact. EARS: Hearing grossly intact. MOUTH: Oropharynx is normal. NECK: No adenopathy, no JVD. CHEST: Chest with clear breath sounds bilaterally. No wheezes, rales, or rhonchi. CARDIAC: Regular rate and rhythm. S1 and S2, without murmurs, gallops, or rubs. VASCULAR: No Edema. Peripheral pulses normal and equal in all extremities. ABDOMEN: Soft, without detectable tenderness. No sign of distention. No rebound or guarding, and no masses palpated. Bowel Sounds normal. MUSCULOSKELETAL: Chest wall tenderness on palpation, otherwise good range of motion of all major joints. Extremities without clubbing, cyanosis or edema. NEUROLOGIC EXAM: Alert and oriented x 3. No focal sensory or strength deficits. Speech normal. Follows commands. PSYCHIATRIC: Mood normal. SKIN: No rash or lesions. - Constitutional Vitals: Temp Pulse Resp BP Pulse Ox 98.5 F 77 18 138/72 97 03/12/17 16:27 03/12/17 16:27 03/12/17 16:27 03/12/17 16:27 03/12/17 16:27 Results - Labs CBC & Chem 7: 03/10/17 13:07 03/10/17 13:07 Labs: Laboratory Last Values WBC 5.0 K/mm3 (4.5-11.0) 03/10/17 13:07 RBC 3.06 M/mm3 (3.65-5.03) L 03/10/17 13:07 Hgb 10.5 gm/dl (10.1-14.3) 03/10/17 13:07 Hct 31.0 % (30.3-42.9) 03/10/17 13:07 MCV 101 fl (79-97) H 03/10/17 13:07 MCH 34 pg (28-32) H 03/10/17 13:07 MCHC 34 % (30-34) 03/10/17 13:07 RDW 16.5 % (13.2-15.2) H 03/10/17 13:07 Plt Count 285 K/mm3 (140-440) 03/10/17 13:07 Lymph % (Auto) 32.8 % (13.4-35.0) 03/10/17 13:07 [place] % (Auto) 11.5 % (0.0-7.3) H 03/10/17 13:07 Eos % (Auto) 0.7 % (0.0-4.3) 03/10/17 13:07 Baso % (Auto) 0.6 % (0.0-1.8) 03/10/17 13:07 Lymph # 1.7 K/mm3 (1.2-5.4) 03/10/17 13:07 [place] # 0.6 K/mm3 (0.0-0.8) 03/10/17 13:07 Eos # 0.0 K/mm3 (0.0-0.4) 03/10/17 13:07 Baso # 0.0 K/mm3 (0.0-0.1) 03/10/17 13:07 Seg Neutrophils % 54.4 % (40.0-70.0) 03/10/17 13:07 Seg Neutrophils # 2.7 K/mm3 (1.8-7.7) 03/10/17 13:07 Sodium 144 mmol/L (137-145) 03/10/17 13:07 Potassium 3.5 mmol/L (3.6-5.0) L 03/10/17 13:07 Chloride 103.5 mmol/L (98-107) 03/10/17 13:07 Carbon Dioxide 26 mmol/L (22-30) 03/10/17 13:07 Anion Gap 18 mmol/L 03/10/17 13:07 BUN 5 mg/dL (7-17) L 03/10/17 13:07 Creatinine 0.6 mg/dL (0.7-1.2) L 03/10/17 13:07 Estimated GFR > 60 ml/min 03/10/17 13:07 BUN/Creatinine Ratio 8.33 % 03/10/17 13:07 Glucose 101 mg/dL (65-100) H 03/10/17 13:07 Calcium 8.8 mg/dL (8.4-10.2) 03/10/17 13:07 Total Bilirubin 0.20 mg/dL (0.1-1.2) 03/10/17 13:07 AST 71 units/L (5-40) H 03/10/17 13:07 ALT 50 units/L (7-56) 03/10/17 13:07 Alkaline Phosphatase 83 units/L (35-129) 03/10/17 13:07 Troponin T < 0.010 ng/mL (0.00-0.029) 03/11/17 13:37 Total Protein 7.1 g/dL (6.3-8.2) 03/10/17 13:07 Albumin 3.6 g/dL (3.9-5) L 03/10/17 13:07 Albumin/Globulin Ratio 1.0 % 03/10/17 13:07 Urine Color Yellow (Yellow) 03/09/17 19:25 Urine Turbidity Clear (Clear) 03/09/17 19:25 Urine pH 6.0 (5.0-7.0) 03/09/17 19:25 Ur Specific [place] 1.009 (1.003-1.030) 03/09/17 19:25 Urine Protein <15 mg/dl mg/dL (Negative) 03/09/17 19:25 Urine Glucose (UA) Neg mg/dL (Negative) 03/09/17 19:25 Urine Ketones Tr mg/dL (Negative) 03/09/17 19:25 Urine Blood Neg (Negative) 03/09/17 19:25 Urine Nitrite Neg (Negative) 03/09/17 19:25 Ur Reducing Substances Not Reportable 05/15/17 19:25 Urine Bilirubin Neg (Negative) 03/09/17 19:25 Urine Ictotest Not Reportable 03/09/17 19:25 Urine Urobilinogen < 2.0 mg/dL (<2.0) 03/09/17 19:25 Ur Leukocyte Esterase Neg (Negative) 03/09/17 19:25 Urine WBC (Auto) 1.0 /HPF (0.0-6.0) 03/09/17 19:25 Urine RBC (Auto) 1.0 /HPF (0.0-6.0) 03/09/17 19:25 U Epithel Cells (Auto) 1.0 /HPF (0-13.0) 03/09/17 19:25 Urine HCG, Qual Negative (Negative) 03/09/17 19:25 Urine Opiates Screen Presumptive negative 03/09/17 19:25 Urine Methadone Screen Presumptive negative 03/09/17 19:25 Ur Barbiturates Screen Presumptive negative 03/09/17 19:25 Ur Phencyclidine Scrn Presumptive negative 03/09/17 19:25 Ur Amphetamines Screen Presumptive negative 03/09/17 19:25 U Benzodiazepines Scrn Presumptive positive 03/09/17 19:25 Urine Cocaine Screen Presumptive negative 03/09/17 19:25 U Marijuana (THC) Screen Presumptive negative 03/09/17 19:25 Drugs of Abuse Note Disclamer 03/09/17 19:25 Plasma/Serum Alcohol < 0.01 gm% (0-0.07) 03/09/17 15:10
[2017-03-12] MEDS: BENADRYL PO SCH (23:23)
[2017-03-13] MEDS: HEPARIN SUB-Q SCH ×3 (06:43→21:05)
[2017-03-13] MEDS: KEPPRA PO SCH ×2 (10:21→21:05)
[2017-03-13] MEDS: VITAMIN B-1 PO SCH (10:21)
[2017-03-13] MEDS: THERAGRAN Tab PO SCH (10:22)
[2017-03-13] MEDS: FOLVITE PO SCH (10:22)
--- NOTE | 2017-03-13 14:20 | Progress Note ---
Assessment and Plan Assessment and plan: Patient is a 46-year-old female with past medical history of seizure as a child and since then, Alcohol abuse admitted with suicidal ideation and EtOH withdrawal seizure. * Atypical chest pain likely secondary to costochondritis * Suicidal ideation * Hypokalemia * Alcohol withdrawal seizure * Alcohol dependence * Hepatitis C Plan: * Patient is medically stable for discharge to inpatient psych. * k REPLEACED * no further chest pain * No indication for AED at this time considering withdrawal nature of the seizure. no further seizure * I discussed with the patient over the need of total abstain from alcohol, she verbalizes understanding * DVT/GI prophy * Plan discussed with nursing staff and patient. History Interval history: Patient seen and examined this morning in no acute distress, NO NEW COMPLAINTS no chest pain today but otherwise no, nausea, vomiting, diarrhea No fever noted blood pressure controlled No adverse events reported to me by nursing staff Hospitalist Physical - Physical exam Narrative exam: VITAL SIGNS: Reviewed. GENERAL: The patient appeared well nourished and normally developed. Vital signs as documented. HEAD: No signs of head trauma. EYES: Pupils are equal. Extraocular motions intact. EARS: Hearing grossly intact. MOUTH: Oropharynx is normal. NECK: No adenopathy, no JVD. CHEST: Chest with clear breath sounds bilaterally. No wheezes, rales, or rhonchi. CARDIAC: Regular rate and rhythm. S1 and S2, without murmurs, gallops, or rubs. VASCULAR: No Edema. Peripheral pulses normal and equal in all extremities. ABDOMEN: Soft, without detectable tenderness. No sign of distention. No rebound or guarding, and no masses palpated. Bowel Sounds normal. MUSCULOSKELETAL: Chest wall tenderness on palpation, otherwise good range of motion of all major joints. Extremities without clubbing, cyanosis or edema. NEUROLOGIC EXAM: Alert and oriented x 3. No focal sensory or strength deficits. Speech normal. Follows commands. PSYCHIATRIC: Mood normal. SKIN: No rash or lesions. - Constitutional Vitals: Temp Pulse Resp BP Pulse Ox 97.4 F L 74 20 144/92 97 03/13/17 08:50 03/13/17 10:25 03/13/17 10:25 03/13/17 08:50 03/13/17 08:50 Results - Labs CBC & Chem 7: 03/10/17 13:07 03/10/17 13:07 Labs: Laboratory Last Values WBC 5.0 K/mm3 (4.5-11.0) 03/10/17 13:07 RBC 3.06 M/mm3 (3.65-5.03) L 03/10/17 13:07 Hgb 10.5 gm/dl (10.1-14.3) 03/10/17 13:07 Hct 31.0 % (30.3-42.9) 03/10/17 13:07 MCV 101 fl (79-97) H 03/10/17 13:07 MCH 34 pg (28-32) H 03/10/17 13:07 MCHC 34 % (30-34) 03/10/17 13:07 RDW 16.5 % (13.2-15.2) H 03/10/17 13:07 Plt Count 285 K/mm3 (140-440) 03/10/17 13:07 Lymph % (Auto) 32.8 % (13.4-35.0) 03/10/17 13:07 [place] % (Auto) 11.5 % (0.0-7.3) H 03/10/17 13:07 Eos % (Auto) 0.7 % (0.0-4.3) 03/10/17 13:07 Baso % (Auto) 0.6 % (0.0-1.8) 03/10/17 13:07 Lymph # 1.7 K/mm3 (1.2-5.4) 03/10/17 13:07 [place] # 0.6 K/mm3 (0.0-0.8) 03/10/17 13:07 Eos # 0.0 K/mm3 (0.0-0.4) 03/10/17 13:07 Baso # 0.0 K/mm3 (0.0-0.1) 03/10/17 13:07 Seg Neutrophils % 54.4 % (40.0-70.0) 03/10/17 13:07 Seg Neutrophils # 2.7 K/mm3 (1.8-7.7) 03/10/17 13:07 Sodium 144 mmol/L (137-145) 03/10/17 13:07 Potassium 3.5 mmol/L (3.6-5.0) L 03/10/17 13:07 Chloride 103.5 mmol/L (98-107) 03/10/17 13:07 Carbon Dioxide 26 mmol/L (22-30) 03/10/17 13:07 Anion Gap 18 mmol/L 03/10/17 13:07 BUN 5 mg/dL (7-17) L 03/10/17 13:07 Creatinine 0.6 mg/dL (0.7-1.2) L 03/10/17 13:07 Estimated GFR > 60 ml/min 03/10/17 13:07 BUN/Creatinine Ratio 8.33 % 03/10/17 13:07 Glucose 101 mg/dL (65-100) H 03/10/17 13:07 Calcium 8.8 mg/dL (8.4-10.2) 03/10/17 13:07 Total Bilirubin 0.20 mg/dL (0.1-1.2) 03/10/17 13:07 AST 71 units/L (5-40) H 03/10/17 13:07 ALT 50 units/L (7-56) 03/10/17 13:07 Alkaline Phosphatase 83 units/L (35-129) 03/10/17 13:07 Troponin T < 0.010 ng/mL (0.00-0.029) 03/11/17 13:37 Total Protein 7.1 g/dL (6.3-8.2) 03/10/17 13:07 Albumin 3.6 g/dL (3.9-5) L 03/10/17 13:07 Albumin/Globulin Ratio 1.0 % 03/10/17 13:07 Urine Color Yellow (Yellow) 03/09/17 19:25 Urine Turbidity Clear (Clear) 03/09/17 19:25 Urine pH 6.0 (5.0-7.0) 03/09/17 19:25 Ur Specific [place] 1.009 (1.003-1.030) 03/09/17 19:25 Urine Protein <15 mg/dl mg/dL (Negative) 03/09/17 19:25 Urine Glucose (UA) Neg mg/dL (Negative) 03/09/17 19:25 Urine Ketones Tr mg/dL (Negative) 03/09/17 19:25 Urine Blood Neg (Negative) 03/09/17 19:25 Urine Nitrite Neg (Negative) 03/09/17 19:25 Ur Reducing Substances Not Reportable 03/09/17 19:25 Urine Bilirubin Neg (Negative) 03/09/17 19:25 Urine Ictotest Not Reportable 03/09/17 19:25 Urine Urobilinogen < 2.0 mg/dL (<2.0) 03/09/17 19:25 Ur Leukocyte Esterase Neg (Negative) 03/09/17 19:25 Urine WBC (Auto) 1.0 /HPF (0.0-6.0) 03/09/17 19:25 Urine RBC (Auto) 1.0 /HPF (0.0-6.0) 03/09/17 19:25 U Epithel Cells (Auto) 1.0 /HPF (0-13.0) 03/09/17 19:25 Urine HCG, Qual Negative (Negative) 03/09/17 19:25 Urine Opiates Screen Presumptive negative 03/09/17 19:25 Urine Methadone Screen Presumptive negative 03/09/17 19:25 Ur Barbiturates Screen Presumptive negative 03/09/17 19:25 Ur Phencyclidine Scrn Presumptive negative 03/09/17 19:25 Ur Amphetamines Screen Presumptive negative 03/09/17 19:25 U Benzodiazepines Scrn Presumptive positive 03/09/17 19:25 Urine Cocaine Screen Presumptive negative 03/09/17 19:25 U Marijuana (THC) Screen Presumptive negative 03/09/17 19:25 Drugs of Abuse Note Disclamer 03/09/17 19:25 Plasma/Serum Alcohol < 0.01 gm% (0-0.07) 03/09/17 15:10
[2017-03-13] MEDS: ATIVAN IV PRN (17:58)
--- NOTE | 2017-03-13 19:13 | Progress Note ---
Subjective - Reason for Consult Consult date: 03/13/17 Reason for consult: psychiatric follow up - Chief Complaint Chief complaint: "I now I need help" This is a 46-year-old Afro-[place] female presents to the emergency department , through triage, with complaint of alcoholism and suicidal ideations. Today patient is calm and cooperative during assessment. She is worried about the whereabouts of her daughter and grandson. She denies VH's and a poor appetite. She reports depression, auditory hallucinations of hearing whispers, and feelings of helplessness. Mental Status Exam - Vital signs Last Vital Signs Temp 98.5 F 03/13/17 16:56 Pulse 77 03/13/17 16:56 Resp 20 03/13/17 16:56 BP 138/86 03/13/17 16:56 Pulse Ox 97 03/13/17 08:50 - Exam Orientation: time, place, person Affect: depressed Mood: congruent with affect Thought content: other (SI, no HI) Perceptions: none Speech: normal rate and pattern Concentration: focused Motor activity: normal Level of consciousness: alert Memory: Intact Sleep Symptoms: None Appetite: decreased Interaction: cooperative Assessment and Plan Impression: Alcohol Use DO. This is a 46-year-old Afro-[place] female presents to the emergency department, through triage, with complaint of alcoholism and suicidal ideations. Today patient is calm and cooperative during assessment. She stated that she would like help for her alcohol addiction. No acute withdrawals observed on assessment. Continues to have SI and AH (whispers) DD: MDD with psychotic features Recommendation/Plan: Continue 1013 and plan for inpatient psychiatric treatment if it continues to be indicated when she is medically cleared. Plan for SSRI Plan for antipsychotic if AH persist.
[2017-03-13] MEDS: BENADRYL PO SCH (21:05)
[2017-03-14] MEDS: HEPARIN SUB-Q SCH ×3 (05:11→21:57)
[2017-03-14] MEDS: FOLVITE PO SCH (09:35)
[2017-03-14] MEDS: VITAMIN B-1 PO SCH (09:35)
[2017-03-14] MEDS: KEPPRA PO SCH ×2 (09:35→21:56)
[2017-03-14] MEDS: THERAGRAN Tab PO SCH (09:36)
--- NOTE | 2017-03-14 14:34 | Progress Note ---
Assessment and Plan Assessment and plan: Patient is a 46-year-old female with past medical history of seizure as a child and since then, Alcohol abuse admitted with suicidal ideation and EtOH withdrawal seizure. * Atypical chest pain likely secondary to costochondritis * Suicidal ideation * Auditory hallucination * Hypokalemia-replaced * Alcohol withdrawal seizure * Alcohol dependence * Hepatitis C Plan: * Patient is medically stable for discharge to inpatient psych. awaiting psych placement * no further chest pain * No indication for AED at this time considering withdrawal nature of the seizure. no further seizure * I discussed with the patient over the need of total abstain from alcohol, she verbalizes understanding * DVT/GI prophy * Plan discussed with nursing staff and patient. History Interval history: Patient seen and examined this morning in no acute distress, NO NEW COMPLAINTS, except for Auditory hallucination, pt reported a few days ago no chest pain today but otherwise no, nausea, vomiting, diarrhea No fever noted blood pressure controlled No adverse events reported to me by nursing staff Hospitalist Physical - Physical exam Narrative exam: VITAL SIGNS: Reviewed. GENERAL: The patient appeared well nourished and normally developed. Vital signs as documented. HEAD: No signs of head trauma. EYES: Pupils are equal. Extraocular motions intact. EARS: Hearing grossly intact. MOUTH: Oropharynx is normal. NECK: No adenopathy, no JVD. CHEST: Chest with clear breath sounds bilaterally. No wheezes, rales, or rhonchi. CARDIAC: Regular rate and rhythm. S1 and S2, without murmurs, gallops, or rubs. VASCULAR: No Edema. Peripheral pulses normal and equal in all extremities. ABDOMEN: Soft, without detectable tenderness. No sign of distention. No rebound or guarding, and no masses palpated. Bowel Sounds normal. MUSCULOSKELETAL: Chest wall tenderness on palpation, otherwise good range of motion of all major joints. Extremities without clubbing, cyanosis or edema. NEUROLOGIC EXAM: Alert and oriented x 3. No focal sensory or strength deficits. Speech normal. Follows commands. PSYCHIATRIC: Mood normal. SKIN: No rash or lesions. - Constitutional Vitals: Temp Pulse Resp BP Pulse Ox 98.0 F 68 20 115/74 98 03/14/17 07:21 03/14/17 07:21 03/14/17 07:21 03/14/17 07:21 03/14/17 07:21 Results - Labs CBC & Chem 7: 03/10/17 13:07 03/10/17 13:07 Labs: Laboratory Last Values WBC 5.0 K/mm3 (4.5-11.0) 03/10/17 13:07 RBC 3.06 M/mm3 (3.65-5.03) L 03/10/17 13:07 Hgb 10.5 gm/dl (10.1-14.3) 03/10/17 13:07 Hct 31.0 % (30.3-42.9) 03/10/17 13:07 MCV 101 fl (79-97) H 03/10/17 13:07 MCH 34 pg (28-32) H 03/10/17 13:07 MCHC 34 % (30-34) 03/10/17 13:07 RDW 16.5 % (13.2-15.2) H 03/10/17 13:07 Plt Count 285 K/mm3 (140-440) 03/10/17 13:07 Lymph % (Auto) 32.8 % (13.4-35.0) 03/10/17 13:07 [place] % (Auto) 11.5 % (0.0-7.3) H 03/10/17 13:07 Eos % (Auto) 0.7 % (0.0-4.3) 03/10/17 13:07 Baso % (Auto) 0.6 % (0.0-1.8) 03/10/17 13:07 Lymph # 1.7 K/mm3 (1.2-5.4) 03/10/17 13:07 [place] # 0.6 K/mm3 (0.0-0.8) 03/10/17 13:07 Eos # 0.0 K/mm3 (0.0-0.4) 03/10/17 13:07 Baso # 0.0 K/mm3 (0.0-0.1) 03/10/17 13:07 Seg Neutrophils % 54.4 % (40.0-70.0) 03/10/17 13:07 Seg Neutrophils # 2.7 K/mm3 (1.8-7.7) 03/10/17 13:07 Sodium 144 mmol/L (137-145) 03/10/17 13:07 Potassium 3.5 mmol/L (3.6-5.0) L 03/10/17 13:07 Chloride 103.5 mmol/L (98-107) 03/10/17 13:07 Carbon Dioxide 26 mmol/L (22-30) 03/10/17 13:07 Anion Gap 18 mmol/L 03/10/17 13:07 BUN 5 mg/dL (7-17) L 03/10/17 13:07 Creatinine 0.6 mg/dL (0.7-1.2) L 03/10/17 13:07 Estimated GFR > 60 ml/min 03/10/17 13:07 BUN/Creatinine Ratio 8.33 % 03/10/17 13:07 Glucose 101 mg/dL (65-100) H 03/10/17 13:07 Calcium 8.8 mg/dL (8.4-10.2) 03/10/17 13:07 Total Bilirubin 0.20 mg/dL (0.1-1.2) 03/10/17 13:07 AST 71 units/L (5-40) H 03/10/17 13:07 ALT 50 units/L (7-56) 03/10/17 13:07 Alkaline Phosphatase 83 units/L (35-129) 03/10/17 13:07 Troponin T < 0.010 ng/mL (0.00-0.029) 03/11/17 13:37 Total Protein 7.1 g/dL (6.3-8.2) 03/10/17 13:07 Albumin 3.6 g/dL (3.9-5) L 03/10/17 13:07 Albumin/Globulin Ratio 1.0 % 03/10/17 13:07 Urine Color Yellow (Yellow) 03/09/17 19:25 Urine Turbidity Clear (Clear) 03/09/17 19:25 Urine pH 6.0 (5.0-7.0) 03/09/17 19:25 Ur Specific [place] 1.009 (1.003-1.030) 03/09/17 19:25 Urine Protein <15 mg/dl mg/dL (Negative) 03/09/17 19:25 Urine Glucose (UA) Neg mg/dL (Negative) 03/09/17 19:25 Urine Ketones Tr mg/dL (Negative) 03/09/17 19:25 Urine Blood Neg (Negative) 03/09/17 19:25 Urine Nitrite Neg (Negative) 03/09/17 19:25 Ur Reducing Substances Not Reportable 03/09/17 19:25 Urine Bilirubin Neg (Negative) 03/09/17 19:25 Urine Ictotest Not Reportable 03/09/17 19:25 Urine Urobilinogen < 2.0 mg/dL (<2.0) 03/09/17 19:25 Ur Leukocyte Esterase Neg (Negative) 03/09/17 19:25 Urine WBC (Auto) 1.0 /HPF (0.0-6.0) 03/09/17 19:25 Urine RBC (Auto) 1.0 /HPF (0.0-6.0) 03/09/17 19:25 U Epithel Cells (Auto) 1.0 /HPF (0-13.0) 03/09/17 19:25 Urine HCG, Qual Negative (Negative) 03/09/17 19:25 Urine Opiates Screen Presumptive negative 03/09/17 19:25 Urine Methadone Screen Presumptive negative 03/09/17 19:25 Ur Barbiturates Screen Presumptive negative 03/09/17 19:25 Ur Phencyclidine Scrn Presumptive negative 03/09/17 19:25 Ur Amphetamines Screen Presumptive negative 03/09/17 19:25 U Benzodiazepines Scrn Presumptive positive 03/09/17 19:25 Urine Cocaine Screen Presumptive negative 03/09/17 19:25 U Marijuana (THC) Screen Presumptive negative 03/09/17 19:25 Drugs of Abuse Note Disclamer 03/09/17 19:25 Plasma/Serum Alcohol < 0.01 gm% (0-0.07) 03/09/17 15:10
[2017-03-14] MEDS: BENADRYL PO SCH (21:56)
[2017-03-15] MEDS: HEPARIN SUB-Q SCH ×3 (06:09→22:02)
--- NOTE | 2017-03-15 08:15 | Progress Note ---
Assessment and Plan Assessment and plan: Patient is a 46-year-old female with past medical history of seizure as a child and since then, Alcohol abuse admitted with suicidal ideation and EtOH withdrawal seizure. * Atypical chest pain likely secondary to costochondritis * Suicidal ideation * Auditory hallucination * elevated BP without diagnosis of HTN * Hypokalemia-replaced * Alcohol withdrawal seizure * Alcohol dependence * Hepatitis C Plan: * Patient is medically stable for discharge to inpatient psych. awaiting psych placement * no further chest pain * Monitor BP * No indication for AED at this time considering withdrawal nature of the seizure. no further seizure * I discussed with the patient over the need of total abstain from alcohol, she verbalizes understanding * DVT/GI prophy * Plan discussed with nursing staff and patient. History Interval history: Patient seen and examined this morning in no acute distress, no new complaints, except for Auditory hallucination, pt reported a few days ago no chest pain today but otherwise no, nausea, vomiting, diarrhea No fever noted blood pressure controlled No adverse events reported to me by nursing staff Hospitalist Physical - Physical exam Narrative exam: VITAL SIGNS: Reviewed. GENERAL: The patient appeared well nourished and normally developed. Vital signs as documented. HEAD: No signs of head trauma. EYES: Pupils are equal. Extraocular motions intact. EARS: Hearing grossly intact. MOUTH: Oropharynx is normal. NECK: No adenopathy, no JVD. CHEST: Chest with clear breath sounds bilaterally. No wheezes, rales, or rhonchi. CARDIAC: Regular rate and rhythm. S1 and S2, without murmurs, gallops, or rubs. VASCULAR: No Edema. Peripheral pulses normal and equal in all extremities. ABDOMEN: Soft, without detectable tenderness. No sign of distention. No rebound or guarding, and no masses palpated. Bowel Sounds normal. MUSCULOSKELETAL: Chest wall tenderness on palpation, otherwise good range of motion of all major joints. Extremities without clubbing, cyanosis or edema. NEUROLOGIC EXAM: Alert and oriented x 3. No focal sensory or strength deficits. Speech normal. Follows commands. PSYCHIATRIC: Mood normal. SKIN: No rash or lesions. - Constitutional Vitals: Temp Pulse Resp BP Pulse Ox 97.9 F 89 20 136/91 97 03/15/17 07:30 03/15/17 00:06 03/15/17 07:30 03/15/17 00:06 03/15/17 00:06 Results - Labs CBC & Chem 7: 03/10/17 13:07 03/10/17 13:07 Labs: Laboratory Last Values WBC 5.0 K/mm3 (4.5-11.0) 03/10/17 13:07 RBC 3.06 M/mm3 (3.65-5.03) L 03/10/17 13:07 Hgb 10.5 gm/dl (10.1-14.3) 03/10/17 13:07 Hct 31.0 % (30.3-42.9) 03/10/17 13:07 MCV 101 fl (79-97) H 03/10/17 13:07 MCH 34 pg (28-32) H 03/10/17 13:07 MCHC 34 % (30-34) 03/10/17 13:07 RDW 16.5 % (13.2-15.2) H 03/10/17 13:07 Plt Count 285 K/mm3 (140-440) 03/10/17 13:07 Lymph % (Auto) 32.8 % (13.4-35.0) 03/10/17 13:07 [place] % (Auto) 11.5 % (0.0-7.3) H 03/10/17 13:07 Eos % (Auto) 0.7 % (0.0-4.3) 03/10/17 13:07 Baso % (Auto) 0.6 % (0.0-1.8) 03/10/17 13:07 Lymph # 1.7 K/mm3 (1.2-5.4) 03/10/17 13:07 [place] # 0.6 K/mm3 (0.0-0.8) 03/10/17 13:07 Eos # 0.0 K/mm3 (0.0-0.4) 03/10/17 13:07 Baso # 0.0 K/mm3 (0.0-0.1) 03/10/17 13:07 Seg Neutrophils % 54.4 % (40.0-70.0) 03/10/17 13:07 Seg Neutrophils # 2.7 K/mm3 (1.8-7.7) 03/10/17 13:07 Sodium 144 mmol/L (137-145) 03/10/17 13:07 Potassium 3.5 mmol/L (3.6-5.0) L 03/10/17 13:07 Chloride 103.5 mmol/L (98-107) 03/10/17 13:07 Carbon Dioxide 26 mmol/L (22-30) 03/10/17 13:07 Anion Gap 18 mmol/L 03/10/17 13:07 BUN 5 mg/dL (7-17) L 03/10/17 13:07 Creatinine 0.6 mg/dL (0.7-1.2) L 03/10/17 13:07 Estimated GFR > 60 ml/min 03/10/17 13:07 BUN/Creatinine Ratio 8.33 % 03/10/17 13:07 Glucose 101 mg/dL (65-100) H 03/10/17 13:07 Calcium 8.8 mg/dL (8.4-10.2) 03/10/17 13:07 Total Bilirubin 0.20 mg/dL (0.1-1.2) 03/10/17 13:07 AST 71 units/L (5-40) H 03/10/17 13:07 ALT 50 units/L (7-56) 03/10/17 13:07 Alkaline Phosphatase 83 units/L (35-129) 03/10/17 13:07 Troponin T < 0.010 ng/mL (0.00-0.029) 03/11/17 13:37 Total Protein 7.1 g/dL (6.3-8.2) 03/10/17 13:07 Albumin 3.6 g/dL (3.9-5) L 03/10/17 13:07 Albumin/Globulin Ratio 1.0 % 03/10/17 13:07 Urine Color Yellow (Yellow) 03/09/17 19:25 Urine Turbidity Clear (Clear) 03/09/17 19:25 Urine pH 6.0 (5.0-7.0) 03/09/17 19:25 Ur Specific [place] 1.009 (1.003-1.030) 03/09/17 19:25 Urine Protein <15 mg/dl mg/dL (Negative) 03/09/17 19:25 Urine Glucose (UA) Neg mg/dL (Negative) 03/09/17 19:25 Urine Ketones Tr mg/dL (Negative) 03/09/17 19:25 Urine Blood Neg (Negative) 03/09/17 19:25 Urine Nitrite Neg (Negative) 03/09/17 19:25 Ur Reducing Substances Not Reportable 03/09/17 19:25 Urine Bilirubin Neg (Negative) 03/09/17 19:25 Urine Ictotest Not Reportable 03/09/17 19:25 Urine Urobilinogen < 2.0 mg/dL (<2.0) 03/09/17 19:25 Ur Leukocyte Esterase Neg (Negative) 03/09/17 19:25 Urine WBC (Auto) 1.0 /HPF (0.0-6.0) 03/09/17 19:25 Urine RBC (Auto) 1.0 /HPF (0.0-6.0) 03/09/17 19:25 U Epithel Cells (Auto) 1.0 /HPF (0-13.0) 03/09/17 19:25 Urine HCG, Qual Negative (Negative) 03/09/17 19:25 Urine Opiates Screen Presumptive negative 03/09/17 19:25 Urine Methadone Screen Presumptive negative 03/09/17 19:25 Ur Barbiturates Screen Presumptive negative 03/09/17 19:25 Ur Phencyclidine Scrn Presumptive negative 03/09/17 19:25 Ur Amphetamines Screen Presumptive negative 03/09/17 19:25 U Benzodiazepines Scrn Presumptive positive 03/09/17 19:25 Urine Cocaine Screen Presumptive negative 03/09/17 19:25 U Marijuana (THC) Screen Presumptive negative 03/09/17 19:25 Drugs of Abuse Note Disclamer 03/09/17 19:25 Plasma/Serum Alcohol < 0.01 gm% (0-0.07) 03/09/17 15:10
[2017-03-15] MEDS: VITAMIN B-1 PO SCH (10:06)
[2017-03-15] MEDS: FOLVITE PO SCH (10:06)
[2017-03-15] MEDS: KEPPRA PO SCH ×2 (10:06→22:00)
[2017-03-15] MEDS: THERAGRAN Tab PO SCH (10:06)
[2017-03-15] MEDS: BENADRYL PO SCH (22:00)
--- NOTE | 2017-03-16 04:35 | Physician Progress Note ---
REASON FOR FOLLOWUP: To reevaluate her mental status and also her response to therapy. SUBJECTIVE DATA: Includes \\"I am doing fine. I am not able to sleep and my appetite is kind of bad.\\" OBJECTIVE DATA: Includes the patient was noted lying in bed, resting quietly. No visible distress noted. She was alert and oriented to person, place and situation. Affect appears to be kind of constricted. Mood was congruent. Eye contact was appropriate. Speech was clear and coherent, but sort of low. She reports depression. She reports being depressed about her daughter, but did not really elaborate on what was going on with her daughter. She reports that she also is depressed about drinking and having hepatitis C. She denies a history of any treatment programs. She is not in any withdrawal symptoms at the current time. She denies any suicidal and homicidal ideation. She denies any auditory and visual hallucinations. She reports having a history of bipolar disorder and she was diagnosed in 2007. She reports that was the last time seeing a psychiatrist during that time and she has not been on any medications. She reports a poor sleep, poor appetite. Right now she is on suicide watch and the sitter is present at the bedside with the patient. The sitter reports that she has been fairly compliant at the current time. Concentration and memory appears to be limited. Insight and judgment remains fair right now. PLAN: To pursue inpatient hospitalization for her. I think she is pending placement at one of the local hospitals. Right now, continue with current psychotropics as prescribed and continue to follow during hospitalization. [facility]# [id number] PARAMJIT/LUIGI
[2017-03-16] MEDS: HEPARIN SUB-Q SCH ×3 (05:47→23:02)
[2017-03-16] MEDS ORDERED: LIBRIUM PO PRN (10:10)
--- NOTE | 2017-03-16 10:17 | Progress Note ---
Assessment and Plan Assessment and plan: Patient is a 46-year-old female with past medical history of seizure as a child and since then, Alcohol abuse admitted with suicidal ideation and EtOH withdrawal seizure. * Atypical chest pain likely secondary to costochondritis * Suicidal ideation * Auditory hallucination * elevated BP without diagnosis of HTN * Hypokalemia-replaced * Alcohol withdrawal seizure * Alcohol dependence * Hepatitis C Plan: * Spoke with Ms Paris at [phone] REPORTS PATIENT HAS HAD 4 SUICIDAL IDEATION ALSO PREVIOUSLY WAS HOOKED ON COCAIN BUT SWITCHED TO ALCOHOL. IS SUPPOSED TO BE ON LIBRIUM AND DILANTIN BUT DOUGBTS COMPLIANCE. THAT SHE REACTS TO [facility] BY SPEAKING UNINTELLIGENTLY. I have updated the psych team * Patient is medically stable for discharge to inpatient psych. awaiting psych placement * no further chest pain * Monitor BP * No indication for AED at this time considering withdrawal nature of the seizure. no further seizure * I discussed with the patient over the need of total abstain from alcohol, she verbalizes understanding * DVT/GI prophy * Plan discussed with patient. History Interval history: Patient seen and examined this morning in no acute distress, no new complaints, except for Auditory hallucination, no chest pain today but otherwise no, nausea, vomiting, diarrhea No fever noted blood pressure controlled No adverse events reported to me by nursing staff Hospitalist Physical - Physical exam Narrative exam: VITAL SIGNS: Reviewed. GENERAL: The patient appeared well nourished and normally developed. Vital signs as documented. HEAD: No signs of head trauma. EYES: Pupils are equal. Extraocular motions intact. EARS: Hearing grossly intact. MOUTH: Oropharynx is normal. NECK: No adenopathy, no JVD. CHEST: Chest with clear breath sounds bilaterally. No wheezes, rales, or rhonchi. CARDIAC: Regular rate and rhythm. S1 and S2, without murmurs, gallops, or rubs. VASCULAR: No Edema. Peripheral pulses normal and equal in all extremities. ABDOMEN: Soft, without detectable tenderness. No sign of distention. No rebound or guarding, and no masses palpated. Bowel Sounds normal. MUSCULOSKELETAL: Chest wall tenderness on palpation, otherwise good range of motion of all major joints. Extremities without clubbing, cyanosis or edema. NEUROLOGIC EXAM: Alert and oriented x 3. No focal sensory or strength deficits. Speech normal. Follows commands. PSYCHIATRIC: Mood normal. SKIN: No rash or lesions. - Constitutional Vitals: Temp Pulse Resp BP Pulse Ox 97.6 F 68 18 118/73 97 03/16/17 01:42 03/16/17 01:42 03/16/17 01:42 03/16/17 01:42 03/16/17 01:42 Results - Labs CBC & Chem 7: 03/10/17 13:07 03/10/17 13:07 Labs: Laboratory Last Values WBC 5.0 K/mm3 (4.5-11.0) 03/10/17 13:07 RBC 3.06 M/mm3 (3.65-5.03) L 03/10/17 13:07 Hgb 10.5 gm/dl (10.1-14.3) 03/10/17 13:07 Hct 31.0 % (30.3-42.9) 03/10/17 13:07 MCV 101 fl (79-97) H 03/10/17 13:07 MCH 34 pg (28-32) H 03/10/17 13:07 MCHC 34 % (30-34) 03/10/17 13:07 RDW 16.5 % (13.2-15.2) H 03/10/17 13:07 Plt Count 285 K/mm3 (140-440) 03/10/17 13:07 Lymph % (Auto) 32.8 % (13.4-35.0) 03/10/17 13:07 [place] % (Auto) 11.5 % (0.0-7.3) H 03/10/17 13:07 Eos % (Auto) 0.7 % (0.0-4.3) 03/10/17 13:07 Baso % (Auto) 0.6 % (0.0-1.8) 03/10/17 13:07 Lymph # 1.7 K/mm3 (1.2-5.4) 03/10/17 13:07 [place] # 0.6 K/mm3 (0.0-0.8) 03/10/17 13:07 Eos # 0.0 K/mm3 (0.0-0.4) 03/10/17 13:07 Baso # 0.0 K/mm3 (0.0-0.1) 03/10/17 13:07 Seg Neutrophils % 54.4 % (40.0-70.0) 03/10/17 13:07 Seg Neutrophils # 2.7 K/mm3 (1.8-7.7) 03/10/17 13:07 Sodium 144 mmol/L (137-145) 03/10/17 13:07 Potassium 3.5 mmol/L (3.6-5.0) L 03/10/17 13:07 Chloride 103.5 mmol/L (98-107) 03/10/17 13:07 Carbon Dioxide 26 mmol/L (22-30) 03/10/17 13:07 Anion Gap 18 mmol/L 03/10/17 13:07 BUN 5 mg/dL (7-17) L 03/10/17 13:07 Creatinine 0.6 mg/dL (0.7-1.2) L 03/10/17 13:07 Estimated GFR > 60 ml/min 03/10/17 13:07 BUN/Creatinine Ratio 8.33 % 03/10/17 13:07 Glucose 101 mg/dL (65-100) H 03/10/17 13:07 Calcium 8.8 mg/dL (8.4-10.2) 03/10/17 13:07 Total Bilirubin 0.20 mg/dL (0.1-1.2) 03/10/17 13:07 AST 71 units/L (5-40) H 03/10/17 13:07 ALT 50 units/L (7-56) 03/10/17 13:07 Alkaline Phosphatase 83 units/L (35-129) 03/10/17 13:07 Troponin T < 0.010 ng/mL (0.00-0.029) 03/11/17 13:37 Total Protein 7.1 g/dL (6.3-8.2) 03/10/17 13:07 Albumin 3.6 g/dL (3.9-5) L 03/10/17 13:07 Albumin/Globulin Ratio 1.0 % 03/10/17 13:07 Urine Color Yellow (Yellow) 03/09/17 19:25 Urine Turbidity Clear (Clear) 03/09/17 19:25 Urine pH 6.0 (5.0-7.0) 03/09/17 19:25 Ur Specific [place] 1.009 (1.003-1.030) 03/09/17 19:25 Urine Protein <15 mg/dl mg/dL (Negative) 03/09/17 19:25 Urine Glucose (UA) Neg mg/dL (Negative) 03/09/17 19:25 Urine Ketones Tr mg/dL (Negative) 03/09/17 19:25 Urine Blood Neg (Negative) 03/09/17 19:25 Urine Nitrite Neg (Negative) 03/09/17 19:25 Ur Reducing Substances Not Reportable 03/09/17 19:25 Urine Bilirubin Neg (Negative) 03/09/17 19:25 Urine Ictotest Not Reportable 03/09/17 19:25 Urine Urobilinogen < 2.0 mg/dL (<2.0) 03/09/17 19:25 Ur Leukocyte Esterase Neg (Negative) 03/09/17 19:25 Urine WBC (Auto) 1.0 /HPF (0.0-6.0) 03/09/17 19:25 Urine RBC (Auto) 1.0 /HPF (0.0-6.0) 03/09/17 19:25 U Epithel Cells (Auto) 1.0 /HPF (0-13.0) 03/09/17 19:25 Urine HCG, Qual Negative (Negative) 03/09/17 19:25 Urine Opiates Screen Presumptive negative 03/09/17 19:25 Urine Methadone Screen Presumptive negative 03/09/17 19:25 Ur Barbiturates Screen Presumptive negative 03/09/17 19:25 Ur Phencyclidine Scrn Presumptive negative 03/09/17 19:25 Ur Amphetamines Screen Presumptive negative 03/09/17 19:25 U Benzodiazepines Scrn Presumptive positive 03/09/17 19:25 Urine Cocaine Screen Presumptive negative 03/09/17 19:25 U Marijuana (THC) Screen Presumptive negative 03/09/17 19:25 Drugs of Abuse Note Disclamer 03/09/17 19:25 Plasma/Serum Alcohol < 0.01 gm% (0-0.07) 03/09/17 15:10
[2017-03-16] MEDS: THERAGRAN Tab PO SCH (10:45)
[2017-03-16] MEDS: FOLVITE PO SCH (10:45)
[2017-03-16] MEDS: VITAMIN B-1 PO SCH (10:45)
[2017-03-16] MEDS: DILANTIN PO SCH ×2 (10:49→23:00)
[2017-03-16] MEDS: KEPPRA PO SCH (14:59)
--- NOTE | 2017-03-16 17:10 | Progress Note ---
Subjective - Reason for Consult Consult date: 03/16/17 Reason for consult: Psychiatry Follow-up - Chief Complaint Chief complaint: "I am well" This is a 46-year-old Afro-[place]itan[place] female presents to the emergency department , through triage, with complaint of alcoholism and suicidal ideations. Today patient is calm and cooperative during assessment. She is concerned about where she will reside once discharged. I explained to her that social media manager will place her. The patient stated, "I can do this, I want to stop drinking." She denies SI/HI's, AVH's, depression, poor appetite or sleep disturbance. Mental Status Exam - Vital signs Last Vital Signs Temp 97.6 F 03/16/17 01:42 Pulse 68 03/16/17 01:42 Resp 18 03/16/17 01:42 BP 118/73 03/16/17 01:42 Pulse Ox 97 03/16/17 01:42 - Exam Narrative exam: MSE: Appearance: calm, cooperative Behavior: good eye contact Speech: regular rate and tone Mood: "okay" Affect: flat Thought Process: linear Thought Content: denies SI/HI's and VH's Motor Activity: ambulatory Cognition: a/ox 3 Insight: fair Judgment: fair Assessment and Plan Impression: This is a 46-year-old Afro-[place]auritan[place] female presents to the emergency department, through triage, with complaint of alcoholism and suicidal ideations. Today patient is calm and cooperative during assessment. She is concerned about where she will reside once discharged. She denies SI/HI's and AVH's. Patient is no threat to self. Patient is homeless. Recommendation/Plan: Rescind 1013. Patient given outpatient rehab services information. Discussed abstaining from alcohol consumption. College Or [employer] Faculty Member involved patient is homeless.
[2017-03-16] MEDS: BENADRYL PO SCH (23:00)
[2017-03-17] MEDS: HEPARIN SUB-Q SCH ×2 (05:32→15:41)
[2017-03-17] MEDS: FOLVITE PO SCH (09:14)
[2017-03-17] MEDS: VITAMIN B-1 PO SCH (09:14)
[2017-03-17] MEDS: DILANTIN PO SCH (09:14)
[2017-03-17] MEDS: THERAGRAN Tab PO SCH (09:15)
--- NOTE | 2017-03-17 10:09 | Progress Note ---
Subjective - Reason for Consult Consult date: 03/17/17 Reason for consult: Psychiatry Follow-up - Chief Complaint Chief complaint: "I am pretty good" This is a 46-year-old Afro-[place]ian female presents to the emergency department , through triage, with complaint of alcoholism and suicidal ideations. Today patient is calm and cooperative during assessment. Upon arrival to her room, she was resting and watching TV. She stated that she look forward to being discharged and getting her life together. She denies SI/HI's, AVH's, depression , poor appetite or sleep disturbance. Mental Status Exam - Vital signs Last Vital Signs Temp 97.7 F 03/17/17 08:00 Pulse 80 03/17/17 08:00 Resp 18 03/17/17 08:00 BP 132/78 03/17/17 08:00 Pulse Ox 98 03/17/17 08:00 - Exam Narrative exam: MSE: Appearance: calm, cooperative Behavior: good eye contact Speech: regular rate and tone Mood: "okay" Affect: flat Thought Process: linear Thought Content: denies SI/HI's and VH's Motor Activity: ambulatory Cognition: a/ox 3 Insight: fair Judgment: fair Assessment and Plan Impression: This is a 46-year-old Afro-[place]ian female presents to the emergency department, through triage, with complaint of alcoholism and suicidal ideations. Today patient is calm and cooperative during assessment. Upon arrival to her room, she was resting and watching TV. She stated that she look forward to being discharged and getting her life together. Patient is homeless. Recommendation/Plan: Patient given outpatient rehab services information. Discussed abstaining from alcohol consumption. Sleeve Turner involved patient is homeless.
--- NOTE | 2017-03-17 14:39 | Progress Note ---
Assessment and Plan Assessment and plan: Patient is a 46-year-old woman with a past medical history of seizure and Alcohol abuse admitted with suicidal ideation and EtOH withdrawal seizure. Atypical chest pain likely secondary to costochondritis Suicidal ideation, 1013 rescinded yesterday Auditory hallucination elevated BP without diagnosis of HTN Hypokalemia-replaced Alcohol withdrawal seizure Alcohol dependence Hepatitis C d/c today History Interval history: Patient seen and examined. Follow up on suicidal ideations. Patient currently denies overnight uneventful. No cp, sob, n/v or severe headaches. Imaging, old records, testing, labs, nursing notes reviewed. Hospitalist Physical - Physical exam Narrative exam: GEN: WDWN, NAD, AWAKE, ALERT, ORIENTATED 3 HEENT: NCAT, PERRL, EOMI, OP CLEAR NECK: SUPPLE, NO THYROMEGALY, NO JVD, NO LAD CVS: RRR, NORMAL S1S2 LUNGS/CHEST: CTA B, NORMAL CHEST EXPANSION B, GOOD AIR ENTRY B ABD: SOFT NTND, GBS, NO REBOUND OR GUARDING EXT/SKIN: NO SIGNIFICANT EDEMA OR RASH MSK: FROM X 4 EXTREMITIES NEURO: CN 2-12 GROSSLY INTACT, NO new FOCAL DEFICITS PSY: CALM - Constitutional Vitals: Temp Pulse Resp BP Pulse Ox 97.7 F 80 18 132/78 98 03/17/17 08:00 03/17/17 08:00 03/17/17 08:00 03/17/17 08:00 03/17/17 08:00 Results - Labs CBC & Chem 7: 03/10/17 13:07 03/10/17 13:07 Labs: Laboratory Last Values WBC 5.0 K/mm3 (4.5-11.0) 03/10/17 13:07 RBC 3.06 M/mm3 (3.65-5.03) L 03/10/17 13:07 Hgb 10.5 gm/dl (10.1-14.3) 03/10/17 13:07 Hct 31.0 % (30.3-42.9) 03/10/17 13:07 MCV 101 fl (79-97) H 03/10/17 13:07 MCH 34 pg (28-32) H 03/10/17 13:07 MCHC 34 % (30-34) 03/10/17 13:07 RDW 16.5 % (13.2-15.2) H 03/10/17 13:07 Plt Count 285 K/mm3 (140-440) 03/10/17 13:07 Lymph % (Auto) 32.8 % (13.4-35.0) 03/10/17 13:07 [place] % (Auto) 11.5 % (0.0-7.3) H 03/10/17 13:07 Eos % (Auto) 0.7 % (0.0-4.3) 03/10/17 13:07 Baso % (Auto) 0.6 % (0.0-1.8) 03/10/17 13:07 Lymph # 1.7 K/mm3 (1.2-5.4) 03/10/17 13:07 [place] # 0.6 K/mm3 (0.0-0.8) 03/10/17 13:07 Eos # 0.0 K/mm3 (0.0-0.4) 03/10/17 13:07 Baso # 0.0 K/mm3 (0.0-0.1) 03/10/17 13:07 Seg Neutrophils % 54.4 % (40.0-70.0) 03/10/17 13:07 Seg Neutrophils # 2.7 K/mm3 (1.8-7.7) 03/10/17 13:07 Sodium 144 mmol/L (137-145) 03/10/17 13:07 Potassium 3.5 mmol/L (3.6-5.0) L 03/10/17 13:07 Chloride 103.5 mmol/L (98-107) 03/10/17 13:07 Carbon Dioxide 26 mmol/L (22-30) 03/10/17 13:07 Anion Gap 18 mmol/L 03/10/17 13:07 BUN 5 mg/dL (7-17) L 03/10/17 13:07 Creatinine 0.6 mg/dL (0.7-1.2) L 03/10/17 13:07 Estimated GFR > 60 ml/min 03/10/17 13:07 BUN/Creatinine Ratio 8.33 % 03/10/17 13:07 Glucose 101 mg/dL (65-100) H 03/10/17 13:07 Calcium 8.8 mg/dL (8.4-10.2) 03/10/17 13:07 Total Bilirubin 0.20 mg/dL (0.1-1.2) 03/10/17 13:07 AST 71 units/L (5-40) H 03/10/17 13:07 ALT 50 units/L (7-56) 03/10/17 13:07 Alkaline Phosphatase 83 units/L (35-129) 03/10/17 13:07 Troponin T < 0.010 ng/mL (0.00-0.029) 03/11/17 13:37 Total Protein 7.1 g/dL (6.3-8.2) 03/10/17 13:07 Albumin 3.6 g/dL (3.9-5) L 03/10/17 13:07 Albumin/Globulin Ratio 1.0 % 03/10/17 13:07 Urine Color Yellow (Yellow) 03/09/17 19:25 Urine Turbidity Clear (Clear) 03/09/17 19:25 Urine pH 6.0 (5.0-7.0) 03/09/17 19:25 Ur Specific [place] 1.009 (1.003-1.030) 03/09/17 19:25 Urine Protein <15 mg/dl mg/dL (Negative) 03/09/17 19:25 Urine Glucose (UA) Neg mg/dL (Negative) 03/09/17 19:25 Urine Ketones Tr mg/dL (Negative) 03/09/17 19:25 Urine Blood Neg (Negative) 03/09/17 19:25 Urine Nitrite Neg (Negative) 03/09/17 19:25 Ur Reducing Substances Not Reportable 03/09/17 19:25 Urine Bilirubin Neg (Negative) 03/09/17 19:25 Urine Ictotest Not Reportable 03/09/17 19:25 Urine Urobilinogen < 2.0 mg/dL (<2.0) 03/09/17 19:25 Ur Leukocyte Esterase Neg (Negative) 03/09/17 19:25 Urine WBC (Auto) 1.0 /HPF (0.0-6.0) 03/09/17 19:25 Urine RBC (Auto) 1.0 /HPF (0.0-6.0) 03/09/17 19:25 U Epithel Cells (Auto) 1.0 /HPF (0-13.0) 03/09/17 19:25 Urine HCG, Qual Negative (Negative) 03/09/17 19:25 Urine Opiates Screen Presumptive negative 03/09/17 19:25 Urine Methadone Screen Presumptive negative 03/09/17 19:25 Ur Barbiturates Screen Presumptive negative 03/09/17 19:25 Ur Phencyclidine Scrn Presumptive negative 03/09/17 19:25 Ur Amphetamines Screen Presumptive negative 03/09/17 19:25 U Benzodiazepines Scrn Presumptive positive 03/09/17 19:25 Urine Cocaine Screen Presumptive negative 03/09/17 19:25 U Marijuana (THC) Screen Presumptive negative 03/09/17 19:25 Drugs of Abuse Note Disclamer 03/09/17 19:25 Plasma/Serum Alcohol < 0.01 gm% (0-0.07) 03/09/17 15:10
--- NOTE | 2017-03-17 14:47 | Discharge Summary ---
Providers - Providers Date of Admission: 03/09/17 19:50 Date of discharge: 03/17/17 Attending physician: ASHLY BLISS 03/09/17 21:50 Consult to Physician [CONS] Routine Consulting Provider: LISA HAMMOND Reason For Exam: ETOH dependence Place consult to:: MELISSA Notified:: MELISSA Phone number called:: [phone] Was contact made?: Yes If yes, spoke with:: MELISSA Time called:: 07:08 03/10/17 09:03 Consult to Mental Health [CONS] Routine Reason For Exam: Etoh dependence/Suicidal ideation Place consult to:: yes Notified:: MELISSA Phone number called:: [phone] Was contact made?: Yes If yes, spoke with:: MELISSA Time called:: 07:08 Primary care physician: RECYCLING OR RUBBISH COLLECTOR Hospitalization Condition: Stable Hospital course: Patient is a 46-year-old woman with a past medical history of seizure and Alcohol abuse admitted with suicidal ideation and EtOH withdrawal seizure. Atypical chest pain likely secondary to costochondritis Suicidal ideation, 1013 rescinded yesterday Auditory hallucination elevated BP without diagnosis of HTN Hypokalemia-replaced Alcohol withdrawal seizure Alcohol dependence Hepatitis C d/c home today Disposition: DISCHARGED TO HOME OR SELFCARE Time spent for discharge: 34 minutes Core Measure Documentation - Palliative Care Palliative Care/ Comfort Measures: Not Applicable - Core Measures Any of the following diagnoses?: none - VTE Discharge Requirements Deep Vein Thrombosis/Pulmonary Embolism Present on Admission: No Has pt received <5 days of overlap therapy or INR<2.0: No Anticoagulant overlap therapy prescribed at discharge: No Contraindication No Overlap Therapy order at DC: Not Indicated Exam - Physical Exam Narrative exam: GEN: WDWN, NAD, AWAKE, ALERT, ORIENTATED 3 HEENT: NCAT, PERRL, EOMI, OP CLEAR NECK: SUPPLE, NO THYROMEGALY, NO JVD, NO LAD CVS: RRR, NORMAL S1S2 LUNGS/CHEST: CTA B, NORMAL CHEST EXPANSION B, GOOD AIR ENTRY B ABD: SOFT NTND, GBS, NO REBOUND OR GUARDING EXT/SKIN: NO SIGNIFICANT EDEMA OR RASH MSK: FROM X 4 EXTREMITIES NEURO: CN 2-12 GROSSLY INTACT, NO FOCAL DEFICITS PSY: CALM - Constitutional Vitals: Temp Pulse Resp BP Pulse Ox 97.7 F 80 18 132/78 98 03/17/17 08:00 03/17/17 08:00 03/17/17 08:00 03/17/17 08:00 03/17/17 08:00 Plan Activity: advance as tolerated (no strenous activites until cleared by PCP. ) Diet: regular Special Instructions: smoking cessation Follow up with: JACOB CORONADO MD [Staff Physician] - 7 Days LUIS A HAMMOND MD [Staff Physician] - 7 Days PRIMARY CARE, [Primary Care Provider] - 3-5 Days Prescriptions: Phenytoin [Dilantin] 300 mg PO QHS #30 capsule.er amLODIPine [Norvasc] 10 mg PO DAILY #30 tab chlordiazePOXIDE [Librium] 5 mg PO Q12H PRN #14 capsule PRN Reason: Anxiety Folic Acid 0.4 mg PO QDAY #30 tablet Multivitamin Tab [Multiple Vitamin TAB (Theragran)] 1 each PO QDAY #30 tablet Thiamine [Vitamin B-1] 100 mg PO QDAY #30 tablet
[2017-03-17 15:46] VITALS: BP 119/90
== END 2017-03-17 16:40 | disposition home or self-care (01) | DRG 897 ==
LOC: ED 14:00 → 3A 19:50
PROVIDERS: ADMIT Internal Medicine; ATTEND Internal Medicine
DX: F10.239 Alcohol dependence with withdrawal, unspecified (principal); R45.851 Suicidal ideations; E44.1 Mild protein-calorie malnutrition; Z68.1 Body mass index [BMI] 19.9 or less, adult; R64 Cachexia; R44.0 Auditory hallucinations; G40.909 Epilepsy, unspecified, not intractable, without status epilepticus; B19.20 Unspecified viral hepatitis C without hepatic coma; M94.0 Chondrocostal junction syndrome [Tietze]; R03.0 Elevated blood-pressure reading, without diagnosis of hypertension; E87.6 Hypokalemia; R07.89 Other chest pain; Z88.0 Allergy status to penicillin; Z59.0 Homelessness; Z91.14 Patient's other noncompliance with medication regimen
CPT/HCPCS: 36415; 80048; 80053; 80307; 80320; 81001; 81025; 84484; 85025; 90686; 90732; 93005; 93010; 93306; 96365; 96366; G0480; J0360; J1644; J2060; J3411; J7030